=== PATIENT | male | born 1950 | race Caucasian/White ===

== ENCOUNTER → 2020-06-22 16:00 | Outpatient (CLI) | payer MEDICARE, SELFPAY ==
--- NOTE | 2020-06-22 14:30 | CYSPIN_PTH ---
PATIENT: CHAY BRAVO LOC: [facility] U#:[id number] AGE/SX: 75/M ROOM: RE06/22/[address]: Dr. Leonel Reeves MD : [id number] BED: DIS: SPEC #: [id number] RECD: 06/23/20 09:00 STATUS: KAREEM SAMMIE #: [id number] DEANN: 06/22/20 14:[address]: Leonel Reeves DEPT: CYTOLOGY RECD BY: Arsh Valencia ENTERED: 06/23/20 09:00 SP TYPE: CYSPIN FL OTHR DR: No Primary Care Phys Tissues: Urine Procedures: Pap Stain (control) Special Stain Group II Cytospin Fluid HEADER OPERATION: Not noted PRE-OP DIAGNOSIS: Malignant neoplasm of bladder TISSUE SUBMITTED: Urine for cytology DIAGNOSIS CYTOLOGY Urine for cytology (cytospin): Negative for malignant cells. Marked acute inflammation. See comment. VERÓNICA:darren 06/27/20 COMMENT Clinical correlation and appropriate follow up are necessary. CYTOLOGY STUDY Slides are reviewed. CYTOLOGY GROSS Received is 55 ml of cloudy yellow fluid labeled with the patient's name and and designated per the requisition as urine. Submitted for cytology preparation. / darren 06/23/20 TC:2 CPT: 92655
[2020-06-22 16:09] LABS: Cytology, Body Fluid / CSF SEE PATHOLOGY REPORT
== END ==
PROVIDERS: Referring Provider Urology; Visit Provider Urology
DX: Z85.51 Personal history of malignant neoplasm of bladder (principal)
CPT/HCPCS: 88108; 88313

== ENCOUNTER 2021-12-13 18:31 | Emergency (ER) | payer MEDICARE, SELFPAY ==
[2021-12-13 18:32] VITALS: BP 174/94; PULSE 89; RESP 16; TEMP 36.7; O2SAT 97; BMI 35.8
--- NOTE | 2021-12-13 18:38 | ED.RN ---
ENTERS INTO TRIAGE AND PATIENT INFORMS HER HE DOES NOT HAVE A FEVER. 99.4 TA TEMP TAKEN BY DOOR SCREENER AND 98.1 ORAL TAKEN BY RN IN TRIAGE. PT DOESN'T HAVE ANY OTHER COMPLAINTS AND CAME BECAUSE THE THERMOMETER AT HOME SAID IT WAS 101 AND THAT IS WHAT HE WAS INSTRUCTED TO DO BY PCP. PT WANTS TO LEAVE. RN INFORMED PT HE HAS BEEN TRIAGED BUT IS ABLE TO LEAVE IF HE DOESN'T FEEL HE NEEDS TO BE SEEN. PT DOES NOT WANT TO BE SEEN. PT STATES HE WILL GET A NEW THERMOMETER AND RETURN IF REPEAT TEMP OF 101 OR HIGHER.
== END 2021-12-13 18:40 | disposition left against medical advice (07) ==
LOC: ED 18:43
DX: R10.9 Unspecified abdominal pain (principal)

== ENCOUNTER 2021-12-13 20:53 | Inpatient (IN) | payer MEDICARE, SELFPAY ==
[2021-12-13] VITALS (8 sets, daily range): BP systolic 116–158; BP diastolic 74–92; PULSE 93–118; RESP 20–33; TEMP 36.7–38.8; O2SAT 92–99; BMI 37.0; BMI 36.6
--- NOTE | 2021-12-13 20:57 | EKG12_ITS ---
Test Reason : SYNCOPE Blood Pressure : / mmHG Vent. Rate : 118 BPM Atrial Rate : 118 BPM P-R Int : 164 ms QRS Dur : 088 ms QT Int : 312 ms P-R-T Axes : 023 000 017 degrees QTc Int : 437 ms Sinus tachycardia Low voltage QRS (Limb Leads) Confirmed by EFREN CHEN, YSABEL ([id number]), makeup editor BERNABE BAKER ([id number]) on 12/17/2021 11:39:39 AM Referred By: Confirmed By:YSABEL SCHWARTZ MD
--- NOTE | 2021-12-13 20:59 | EX.ED.DYSGE1 ---
HPI History of Present Illness Chief Complaint: Syncope Detail of Chief Complaint: Syncope after painful episode, right kidney region Informant: patient and EMS Onset/Context/Timing Onset: Today Context: Sudden Onset Timing: Intermittent and Lasts Quality: Pain Location: Right kidney area Current Severity: Gone Maximum Severity: Severe Worsened by: History of kidney stones Relieved by: Nothing Associated Symptoms Associated Symptoms: Fever and syncopal episode Narrative Narrative: Patient is an elderly male with history of bladder cancer x2 status post cystectomy and has a ileal conduit who presents because of syncopal episode after severe right sided kidney pain. He did present to the emergency room earlier for fever. He did not have pain at that time. He apparently left prior to being seen. He denies shaking chills. He denies night sweats. He does report diaphoresis. He denies headache. Denies visual, ocular auditory symptoms. He denies rhinorrhea, congestion postnasal drainage and sore throat. He does report nausea without vomiting or diarrhea. He states his urine is slightly more cloudy than normal. He has not noted any blood. He has had no change in color, consistency frequency or caliber of his stool. He denies rash. He presently is pain-free. Prior similar symptoms: Yes (Kidney stone) Recent Illness/Hospitalization: No [facility], [facility] Medical History (Updated 12/13/21 @ 22:[address] Albin Sykes MD) Bladder cancer Kidney stones Home Medications amitriptyline 25 mg PO BID 12/13/21 [History Last Taken Unknown] amlodipine 2.5 mg PO QHS 12/13/21 [History Last Taken Unknown] calcitriol 0.25 mcg PO QMWF 12/13/21 [History Last Taken Unknown] losartan 100 mg PO QHS 12/13/21 [History Last Taken Unknown] rosuvastatin 10 mg PO QHS 12/13/21 [History Last Taken Unknown] Allergy/AdvReac Type Severity Reaction Status Date / Time No Known Allergies Allergy Verified 12/13/21 21:00 Social History (Updated 12/13/21 @ 21:[address] Albin Sykes MD) household members: none Smoking Status: Unknown if ever smoked substance use type: does not use ROS ROS ED Constitutional Constitutional ED: Reports chills, fever(s) and sweats; Denies subjective or weight loss Eyes Eyes: Denies blurry vision, change in vision or diplopia ENT ENT ED: Denies ear pain, rhinorrhea or sore throat Cardiovascular Cardiovascular: Denies chest pain, orthopnea, palpitations, paroxysmal nocturnal dyspnea or racing heartbeat Respiratory/Chest Respiratory/Chest: Reports cough; Denies dyspnea, dyspnea on exertion, orthopnea, paroxysmal nocturnal dyspnea or sputum Gastrointestinal Gastrointestinal: Reports abdominal pain and nausea; Denies constipation, diarrhea, melena or vomiting Genitourinary Genitourinary ED: Reports other Details: Ileal conduit ; Denies dysuria, hematuria or urinary frequency Musculoskeletal Musculoskeletal: Denies arthralgias, back pain, myalgias or neck pain Integumentary Denies rash Neurologic Neurologic: Reports weakness; Denies headache(s) or paresthesias Endocrine Endocrinology: Denies polydipsia, polyphagia or polyuria Hematologic/Lymphatic Hematologic/Lymphatic: Denies anemia, easy bleeding or easy bruising EXAM Physical Exam Const Vital Signs: 12/13/21 20:54 12/13/21 21:25 12/13/21 21:54 Temperature 101.8 F H Temperature Source Oral Pulse Rate 118 H 93 Respiratory Rate 22 H 33 H Respiratory Effort Short of Breath Labored Respiratory Pattern Tachypnea Blood Pressure 158/88 H 141/92 H Blood Pressure Mean 111 108 Pulse Ox 92 99 Oxygen Delivery Method Nasal Cannula Nasal Cannula Nasal Cannula Oxygen Flow Rate (L/min) 5 5 5 Positive well nourished, well developed and obese General Appearance ED: well developed, NAD and other Patient appears ill and is flushed. ; Negative for pallor Nutritional Appearance: obese HEENT Reports TM's clear and dry mucous membranes HEENT Narrative: No dental trauma. No septal deviation hematoma. No clinical signs of basilar skull fracture. No evidence of head trauma. Negative for trauma or tenderness Tympanic Membrane ED: Yes TM's clear Mouth ED: Yes dry mucous membranes Mouth: dry mucous membranes Eyes PERRL and EOMs intact bilaterally Eyes Narrative: No subconjunctival hemorrhage. General Eye ED: Yes scleral icterus; Negative for pale conjunctiva Neck no lymphadenopathy, supple and no JVD Neck Narrative: C-spine cleared per Nexus criteria. General: Negative for tenderness Chest Wall inspection of chest normal and palpation of chest normal Resp normal respiratory effort and No clear to auscultation bilaterally Effort and Inspection: pain with movement Auscultation: rales bilateral mid and lower Cardio regular rhythm, S1 normal heart sound, S2 normal heart sound and no murmurs Rate: tachycardic GI normal to inspection, nondistended, normoactive bowel sounds, non-tender and non-distended GI Narrative: Ileal conduit noted. There is slight rash noted near the adhesive tape. There is no induration, warmth or fluctuance. Palpation: soft Back/Spine no CVA tenderness Cervical Spine: Negative for cervical spine tenderness Thoracic Spine / Upper Back: Negative for thoracic spinal tenderness or paraspinal muscle tenderness Extremity normal to inspection General Extremety ED: Negative for edema or tenderness General Extremity: Negative for edema Neuro oriented x3, CN's II-XII intact bilaterally and no sensory deficits noted Sensorium / Orientation: alert Motor Exam: strength 5/5 throughout Psych mental status grossly normal Skin no rashes or lesions noted and no wounds General Skin Exam: Negative for jaundice or pallor MDM MDM MDM Narrative Medical decision making narrative: With patient having severe pain followed by syncope this would represent a vasovagal episode. Monitor reveals sinus tachycardia. Patient is tachycardic, tachypneic and febrile suspect patient has an infection. With him having rales will take chest x-ray suspect the rales are due to pulmonary interstitial fibrosis. Because of him having acute right kidney pain and prior history of kidney stones will obtain CT to assess for obstruction. Urine was not analyzed since he has an ileal conduit and unable to determine if urine abnormalities due to infection or the fact that he has an ileal conduit. Patient was given Rocephin IV piggyback to cover both respiratory and urologic pathogens. If the source is pneumonia versus urinary tract infection will add azithromycin to the Rocephin. Rapid Covid is negative. CT of the abdomen pelvis reveals a right renal stone. There is evidence of hydroureter uncertain whether there is or is not a stone in the ureter. Patient also has bilateral lower lobe infiltrates, or this may represent interstitial pulmonary fibrosis.. This raises concern for Covid however his rapid Covid is negative. If he is neutropenic this may represent severe sepsis versus viral pneumonia. Will obtain a pro calcitonin to help determine if viral versus bacterial. There appears to be multiple lesions in the liver which raises concern for metastasis since he has had recurrent bladder cancer. There also is soft tissue mass in the right inguinal area which may represent a hernia. Patient does have a hernia on exam. I was able to access patient's [employer] account. The right renal calculus and hydronephrosis and hydroureter were known on CT that was performed December 06, 2021. White count was normal this morning. Platelet count was normal this morning. Patient's creatinine this morning was 2.06. Creatinine on August 28, 2021 was 1.33. Urinalysis is morning revealed blood and leukoesterase with no nitrites. The hospitalist requested a urine culture. One was ordered. Since patient has severe sepsis we will place in PCU stepdown. Lab Data Attestation: I reviewed the patient's lab results. Lab results narrative: Patient has neutropenia. H&H is unremarkable. Platelet count is low. There is a shift with no bandemia. Comprehensive metabolic panel is remarkable for an elevated BUN and creatinine. We will compare to prior. Total bili is slightly elevated 1.5. Alkaline phosphatase is slightly elevated one hundred and thirty-three. Procalcitonin is elevated which would indicate bacterial infection. Labs: Laboratory Results - last 24 hr 12/13/21 12/13/21 12/13/21 21:25 21:25 21:25 WBC 1.6 L RBC 4.21 L Hgb 12.7 L Hct 36.4 L MCV 86.5 MCH 30.2 MCHC 34.9 RDW Std Deviation 47.0 H RDW Coeff of Rosa 14.8 H Plt Count 132 L MPV 9.4 Immature Gran % (Auto) 0.000 Neut % (Auto) 88.9 H Lymph % (Auto) 9.3 L [place] % (Auto) 1.2 Eos % (Auto) 0.0 Baso % (Auto) 0.6 Absolute Neuts (auto) 1.4 L Absolute Lymphs (auto) 0.15 L Nucleated RBC % 0 PT 14.3 INR 1.2 APTT 23.7 L Sodium 136 Potassium 4.1 Chloride 106 Carbon Dioxide 23.0 Anion Gap 7 BUN 33 H Creatinine 2.58 H Estim Creat Clear Calc 25.50 Est GFR (MDRD) Af Amer 32 L Est GFR (MDRD) Non-Af 26 L BUN/Creatinine Ratio 12.8 Glucose 96 Lactic Acid Calcium 8.8 Total Bilirubin 1.50 H AST 15 ALT 18 Alkaline Phosphatase 133 H Total Protein 6.7 Albumin 2.8 L Globulin 3.9 Albumin/Globulin Ratio 0.7 L Procalcitonin 12/13/21 12/13/21 21:25 21:25 WBC RBC Hgb Hct MCV MCH MCHC RDW Std Deviation RDW Coeff of Rosa Plt Count MPV Immature Gran % (Auto) Neut % (Auto) Lymph % (Auto) [place] % (Auto) Eos % (Auto) Baso % (Auto) Absolute Neuts (auto) Absolute Lymphs (auto) Nucleated RBC % PT INR APTT Sodium Potassium Chloride Carbon Dioxide Anion Gap BUN Creatinine Estim Creat Clear Calc Est GFR (MDRD) Af Amer Est GFR (MDRD) Non-Af BUN/Creatinine Ratio Glucose Lactic Acid 1.3 Calcium Total Bilirubin AST ALT Alkaline Phosphatase Total Protein Albumin Globulin Albumin/Globulin Ratio Procalcitonin 1.51 H Radiography Chest X-Ray - ED: 1 View (Single view chest x-ray reveals limited inspiratory volume. There is interstitial changes noted peripheral right and left lower lobe which may represent interstitial pulmonary fibrosis. There is no evidence of pneumoperitoneum. There is significant mount of fecal matter noted on the left side. C) Diagnostic Testing: Clinical Impression(s) from Imaging Studies Abdomen/Pelvis CT 12/13/21 21:00 IMPRESSION: Nonobstructing stones in the right kidney. No stone is identified in the right ureter. There is hydronephrosis in the right kidney. This is likely related to the ileal conduit in the right lower quadrant. Electronically Signed: Hola Caba MD at 22:10 EST , Chest X-Ray 12/13/21 21:35 IMPRESSION: Consolidative infiltrates or atelectasis in the lung bases. Electronically Signed: Hola Caba MD at 22:14 EST , EKG Initial EKG: Attestation: I personally reviewed and interpreted this EKG as follows: Interpretation: Sinus Tachycardia (Ventricular rate is 118. Other than the sinus tach the EKG is normal. DC interval is 164 ms. QRS duration 86 ms. QT duration 312 ms. [place] is normal.) Critical Care Time Critical Care Time: Yes Critical care time (excluding procedures): 30-74 minutes (33 minutes), Including time spent: (History, physical, documentation, review of records from last year and laboratory results from this morning from outside facility. Interpretation lab results and initiation of therapy), Discussing w/Patient &/or Family/Restaurant Cashier, Discussing w/Consultants and Arranging Admission or Transfer Discharge Plan Dx/Rx/DC Orders Clinical Impression: Severe sepsis, Neutropenia due to infection, Thrombocytopenia, Pulmonary fibrosis, MARIA GUADALUPE (acute kidney injury), Right renal stone, Hydronephrosis due to ureteral stricture, Sinus tachycardia, Right inguinal hernia, Interstitial lung disease, Vasovagal syncope Disposition Disposition: Acute Care Hospital [facility]
--- NOTE | 2021-12-13 21:00 | CT_ITS ---
EXAM: CT Abdomen and Pelvis Without Intravenous Contrast CLINICAL INDICATION: 71 years old, Male; Kidney Stone -- Right-sided TECHNIQUE: Helically acquired images were obtained of the abdomen and pelvis without intravenous contrast. This CT exam was performed using one or more of the following dose reduction techniques: automated exposure control, adjustment of the mA and/or kV according to patient size, and/or use of iterative reconstruction technique. This report was created using [employer] report generation technology. COMPARISON: None. FINDINGS: Lower thorax: Unremarkable. Lung bases are clear. No cardiomegaly. No significant pericardial effusion. ABDOMEN: Liver: Low attenuation foci in the liver consistent with hepatic cysts. No follow-up is necessary. Gallbladder and bile ducts: Unremarkable. No calcified gallstones. No gallbladder distention or wall edema. No intra- or extrahepatic biliary ductal dilation. Pancreas: Unremarkable. No focal cystic mass. Spleen: Calcified granulomata in the spleen. Adrenals: Unremarkable. No nodules. Kidneys and ureters: Nonobstructing stones in the right kidney. No stone is identified in the right ureter. There is hydronephrosis in the right kidney. Left nephrectomy. Stomach and bowel: Scattered diverticula in the colon. No diverticulitis. No stomach or bowel distention. PELVIS: Appendix: Normal appendix. Bladder: Cystectomy with ileal conduit to a right lower quadrant ileostomy. Reproductive: Unremarkable as visualized. No mass. ABDOMEN and PELVIS: Intraperitoneal space: Unremarkable. No ascites or other fluid collection. No free air. Bones/joints: Bilateral total hip arthroplasties. Components appear well seated. Grade 1 anterolisthesis of L5 on S1 due to bilateral spondylolistheses. No suspicious lytic or blastic abnormality. Soft tissues: Lipoma in the left chest musculature. Bilateral inguinal hernias containing fat. Vasculature: Unremarkable. Abdominal aorta is non-dilated. Lymph nodes: Unremarkable. No enlarged lymph nodes. CT/Abdomen/Pelvis without Cont IMPRESSION: Nonobstructing stones in the right kidney. No stone is identified in the right ureter. There is hydronephrosis in the right kidney. This is likely related to the ileal conduit in the right lower quadrant. Electronically Signed: Hola Caba MD at 22:10 EST ,
[2021-12-13] MEDS: 0.9% Normal Saline 1,000 ML 999 ML IV (21:29)
[2021-12-13 21:34] LABS: Absolute Lymphocyte Count 0.15 X10^3/uL (0.83-4.51); Absolute Neutrophil Count 1.4 X10^3/uL (2.0-7.7); Basophil# 0.01 X10^3/uL; Basophil% 0.6 % (0-1); Hematocrit 36.4 % (40-54); Hemoglobin 12.7 g/dL (13.0-16.5); Lymphocyte # 0.15 X10^3/ul (0.83-4.51); Lymphocyte % 9.3 % (19-41); Mean Corp Hgb Conc 34.9 g/dL (32-36); Mean Corpuscular Hgb 30.2 pg (27.0-32.0); Mean Corpuscular Volume 86.5 fL (80-94); Mean Platelet Vol. 9.4 fl (6.2-12.0); Monocyte# 0.02 X10^3/uL; Monocyte% 1.2 % (0-10); NRBC Flagged by Analyzer 0 % (0-5); Neutrophil # 1.44 X10^3/uL (2.7-7.7); Neutrophil % 88.9 % (47-70); POSITIVE DIFFERENTIAL YES; POSITIVE MORPHOLOGY YES; Platelet Count 132 K/mm3 (150-450); RBC Distribution Width CV 14.8 % (11.6-14.6); Red Blood Count 4.21 M/mm3 (4.6-6.2); White Blood Count 1.6 K/mm3 (4.4-11.0)
--- NOTE | 2021-12-13 21:35 | RAD_ITS ---
EXAM: XR Chest, 1 View CLINICAL INDICATION: 71 years old, Male; Fever and viral lateral rales history of interstit TECHNIQUE: Frontal view of the chest. This report was created using nGAP report generation technology. COMPARISON: None. FINDINGS: Lungs and pleural spaces: Consolidative infiltrates or atelectasis in the lung bases. Shallow inspiration. No pneumothorax. No effusion. Heart: Unremarkable. Cardiac silhouette not enlarged. Mediastinum: Central airways and mediastinal contour are unremarkable. Bones/joints: Unremarkable. Soft tissues: Unremarkable. RAD/Chest 1 View (Portable) IMPRESSION: Consolidative infiltrates or atelectasis in the lung bases. Electronically Signed: Hola Caba MD at 22:14 EST ,
[2021-12-13 21:50] LABS: Differential Indicated SCAN CRITERIA MET
[2021-12-13 21:51] LABS: ALB/GLOB Ratio 0.7 RATIO (0.9-2.4); AST(SGOT) 15 U/L (15-37); Alanine Aminotransfer ALT/SGPT 18 U/L (16-61); Albumin, Serum 2.8 g/dL (3.2-5.0); Alkaline Phosphatase 133 U/L (45-117); Anion Gap 7 (5-15); BUN 33 mg/dL (7-18); BUN/Creat Ratio 12.8 RATIO (10-20); Calcium,Total 8.8 mg/dL (8.5-10.1); Chloride 106 mmol/L (98-107); Creatinine, Serum 2.58 mg/dL (0.70-1.30); EST Glomerular Filtration Rate 26 mL/min (>60); Est Glom Filt Rate - Afr Amer 32 mL/min (>60); Globulin 3.9 g/dL (2.2-4.2); Glucose 96 mg/dL (74-106); Potassium 4.1 mmol/L (3.5-5.1); Protein, Total 6.7 g/dL (6.4-8.2); Sodium Level 136 mmol/L (136-145)
[2021-12-13 21:57] LABS: Lactic Acid 1.3 mmol/L (0.4-1.9)
[2021-12-13 22:00] LABS: International Normalized Ratio 1.2; Prothrombin Time (Protime)PT. 14.3 SECONDS (11.7-14.9)
[2021-12-13 22:01] LABS: Partial Thromboplast Time 23.7 Seconds (24.1-36.2)
[2021-12-13 22:13] LABS: Procalcitonin 1.51 ng/mL (0.00-0.09)
--- NOTE | 2021-12-13 22:24 | HP.PCM.HOS_ITS ---
HPI - General General Date of Admission: 12/13/21 HPI Narrative CHAY BRAVO, is a 71 M with a significant history of interstitial pulmonary fibrosis; left kidney cancer status post left nephrectomy; prostate and bladder cancer status post cystectomy and ileal conduct urostomy ( done on or 2020); chemotherapy and radiation who presents to the emergency department with persistent shortness of breath requiring him to use his home oxygen. He report that his oxygen saturation was 65%. It is unclear from history whether he was on oxygen at that time or not. However reportedly his oxygen rapidly went into the 90s at home. Associated with his symptoms is right flank pain that he thought it was from a kidney stone. He thinks the kidney stone has now passed. On the similar presentation he saw his PCP (Dr. Ramsey) because of the right flank pain. Reportedly he was told by his PCP that if he has a temperature he should come to the emergency department. At home because he developed a temperature of about a 101F he came to emergency department for the first time. At the emergency department triage he had no fever so he went back home. Also patient had chills and anorexia. He also has constipation. For the past 2 days his bowels has not moved. Of note patient denies syncope. Further, patient'S urology is aware that patient has right hydronephrosis and also told patient that if patient develops a fever he should come to the emergency department. The thought was that the right hydronephrosis was secondary to right kidney and it was anticipated that he will pass the kidney stone. [facility] Medical History Bladder cancer Cancer Chronic pain GERD (gastroesophageal reflux disease) Hypertension Irregular heart beat Kidney stones Non-smoker On home oxygen therapy Home Medications amitriptyline 25 mg PO BID 12/13/21 [History Last Taken Unknown] amlodipine 2.5 mg PO QHS 12/13/21 [History Last Taken Unknown] calcitriol 0.25 mcg PO QMWF 12/13/21 [History Last Taken Unknown] losartan 100 mg PO QHS 12/13/21 [History Last Taken Unknown] rosuvastatin 10 mg PO QHS 12/13/21 [History Last Taken Unknown] Allergy/AdvReac Type Severity Reaction Status Date / Time No Known Allergies Allergy Verified 12/13/21 21:00 Family History (Updated 12/13/21 @ 23:[address] Bethel Gzt MD) Other Cancer Surgical History (Updated 12/13/21 @ 23:[address] Bethel Gtz MD) History of nephrectomy, left S/P ileal conduit Social History (Updated 12/13/21 @ 23:[address] Bethel Gtz MD) household members: none Smoking Status: Never smoker substance use type: does not use ROS ROS Narrative Constitutional: Reports fever chills and anorexia. Denies change in weight Eyes: Denies blurry vision, change in eye color, change in vision, discharge from eye(s), double vision, erythema, eye pain, loss of vision or other HEENT: Denies abnormal hearing, dysphagia, ear pain, epistaxis, headache(s), hearing loss, nasal congestion, nasal discharge, post nasal drip, sinus pressure, sore throat or other Cardiovascular: Denies chest pain or palpitations. Respiratory/Chest: Reports shortness of breath. Denies wheezing Gastrointestinal: Reports nausea and constipation. Denies abdominal pain, coffee ground emesis, diarrhea, dyspepsia, hematemesis, hematochezia, loose stools, melena, vomiting or other Genitourinary: With urostomy. Denies hematuria. Musculoskeletal: Denies arthralgias, joint pain, joint stiffness, joint swelling, myalgias, neck pain or other Neurologic: Reports numbness of bilateral legs that he attributes to chemotherapy. Report tremors. Denies abnormal gait, abnormal speech, confusion, disequilibrium, dizziness, focal weakness, headache(s), paresthesias, seizure-like activity, seizures, syncope, tingling, or other Psychiatric: Denies anxiety, depression, homicidal ideation, suicidal ideation or other Endocrinology: Denies change in body appearance, cold intolerance, excessive sweating, heat intolerance, polydipsia, polyuria or other Hematologic/Lymphatic: Denies anemia, easy bleeding, easy bruising, lymphadeno celia or other Integumentary: Denies rashes Allergic/Immunologic: Denies rhinitis, hives, eczema, asthma or other Constitutional Constitutional: Reports fatigue and weakness; Denies anorexia, change in weight, chills, fever(s), malaise or night sweats Eyes Eyes: Denies blurry vision, change in eye color, change in vision, discharge from eye(s), double vision, erythema, eye pain, loss of vision or other ENT HEENT: Reports nasal discharge, post nasal drip and other; Denies abnormal hearing, dysphagia, ear pain, epistaxis, headache(s), hearing loss, sinus pressure or sore throat Cardiovascular Cardiovascular: Reports dyspnea on exertion; Denies chest pain, claudication, edema, lightheadedness, orthopnea, palpitations, paroxysmal nocturnal dyspnea, rapid heart rate, syncope or other Respiratory/Chest Respiratory/Chest: Reports cough, dyspnea, excessive phlegm production, productive cough, shortness of breath at rest, shortness of breath with exertion and wheezing; Denies hemoptysis Gastrointestinal Gastrointestinal: Denies abdominal pain, coffee ground emesis, constipation, diarrhea, dyspepsia, hematemesis, hematochezia, loose stools, melena, nausea, vomiting or other Genitourinary Genitourinary: Denies burning urination, difficulty urinating, dysuria, hematuria, nocturia, urinary frequency, urinary hesitancy, urinary incontinence, urinary urgency or other Musculoskeletal Musculoskeletal: Denies arthralgias, back pain, joint pain, joint stiffness, joint swelling, myalgias, neck pain or other Neurologic Neurologic: Denies abnormal gait, abnormal speech, confusion, disequilibrium, dizziness, focal weakness, headache(s), numbness, paresthesias, seizure-like activity, seizures, syncope, tingling, tremor(s) or other Psychiatric Psychiatric: Denies anxiety, depression, homicidal ideation, suicidal ideation or other Endocrine Endocrinology: Denies change in body appearance, cold intolerance, excessive sweating, heat intolerance, polydipsia, polyuria or other Hematologic/Lymphatic Hematologic/Lymphatic: Denies anemia, easy bleeding, easy bruising, lymphadenopathy or other Allergic/Immunologic Allergic/Immunologic: Denies rhinitis, hives, eczemia, asthma or other Vital Signs Vital Signs Vital Signs: 12/13/21 20:54 12/13/21 21:25 12/13/21 21:54 Temperature 101.8 F H Temperature Source Oral Pulse Rate 118 H 93 Respiratory Rate 22 H 33 H Respiratory Effort Short of Breath Labored Respiratory Pattern Tachypnea Blood Pressure 158/88 H 141/92 H Blood Pressure Mean 111 108 Pulse Ox 92 99 Oxygen Delivery Method Nasal Cannula Nasal Cannula Nasal Cannula Oxygen Flow Rate (L/min) 5 5 5 Weight Weight: 113.8 kg Body Mass Index (BMI) 37.0 Physical Exam Narrative Physical exam: General: Patient appears uncomfortable in his ED bed. Well-nourished, well- developed. Head: Normocephalic, atraumatic, no tenderness Eyes: PERRLA, EOMI ENT, no trauma, moist mucous membranes, no rhinorrhea Neck: Nontender, full range of motion, no spinal tenderness, deformities, step- off CVS: Tachycardia. S1-S2 present. No murmur, gallop or rub. Respiratory : Tachypnea. Moderate bibasilar Rales. Chest wall nontender, no wheezing Abdomen: With right urostomy with dana-colored urine that has some sediments. Soft, nontender, nondistended, normal bowel sounds, no masses : Deferred Back: Nontender, no CVA tenderness, no midline spinal tenderness, deformities, step-offs Extremities: Nontender full range of motion, no trauma Skin: Normal color, no trauma, abrasions Neuro: Alert, oriented, cranial nerves II through XII grossly intact. Psychiatry: Normal mood. Normal affect. Not depressed. Not anxious. Const alert, oriented x3, no apparent distress, average body habitus, healthy appearing and well nourished General Appearance: cooperative and uncooperative Orientation / Consciousness: confused, disoriented and lethargic HEENT normocephalic, head/scalp atraumatic, hearing grossly normal bilaterally, moist oral mucous membranes, oropharynx normal and dentition normal Mouth: oral and palatal mucosa normal and moist mucous membranes abnormal Eyes PERRL, EOMs intact bilaterally and conjunctivae normal Neck no lymphadenopathy, supple, no JVD and no carotid bruits Resp Effort and Inspection: respiratory distress, labored and uses accessory muscles; Negative for able to speak in complete sentences or actively coughing Auscultation: rhonchi, wheezes and breath sounds absent; Negative for crackles Cardio regular rate, regular rhythm, S1 normal heart sound, S2 normal heart sound, no murmurs, no rub, no gallops, no clicks and no JVD GI normal to inspection, nondistended, normoactive bowel sounds, soft to palpation, non-tender, non-distended and hepatosplenomegaly Auscultation: hyperactive bowel sounds and hypoactive bowel sounds Palpation: tender, guarding and hernia Extremity normal to inspection, full ROM and no clubbing, cyanosis or edema Peripheral Pulses: Yes pulses 2+ throughout Skin no rashes or lesions noted, no wounds and skin turgor normal Neuro oriented x3 and moves all extremities Sensorium / Orientation: awake, alert, oriented to person, oriented to place and oriented to time Motor Exam: strength 5/5 throughout Psych affect normal Mood & Affect: Negative for depressed or anxious Results Lab / Micro Data Result Diagrams: 12/13/21 21:25 12/13/21 21:25 Labs: Laboratory Results - last 24 hr 12/13/21 21:25: WBC 1.6 L, RBC 4.21 L, Hgb 12.7 L, Hct 36.4 L, MCV 86.5, MCH 30.2, MCHC 34.9, RDW Std Deviation 47.0 H, RDW Coeff of Rosa 14.8 H, Plt Count 132 L, MPV 9.4, Immature Gran % (Auto) 0.000, Neut % (Auto) 88.9 H, Lymph % (Auto) 9.3 L, Schleicher % (Auto) 1.2, Eos % (Auto) 0.0, Baso % (Auto) 0.6, Absolute Neuts (auto) 1.4 L, Absolute Lymphs (auto) 0.15 L, Nucleated RBC % 0 12/13/21 21:25: PT 14.3, INR 1.2, APTT 23.7 L 12/13/21 21:25: Sodium 136, Potassium 4.1, Chloride 106, Carbon Dioxide 23.0, Anion Gap 7, BUN 33 H, Creatinine 2.58 H, Estim Creat Clear Calc 25.50, Est GFR (MDRD) Af Amer 32 L, Est GFR (MDRD) Non-Af 26 L, BUN/Creatinine Ratio 12.8, Glucose 96, Calcium 8.8, Total Bilirubin 1.50 H, AST 15, ALT 18, Alkaline Phosphatase 133 H, Total Protein 6.7, Albumin 2.8 L, Globulin 3.9, Albumin/Globulin Ratio 0.7 L 12/13/21 21:25: Lactic Acid 1.3 12/13/21 21:25: Procalcitonin 1.51 H Micro: Microbiology 12/13/21 21:17 Nasal Secretion SARS-CoV-2 Antigen (Rapid) - Final Radiology Impression Abdomen/Pelvis CT 12/13/21 21:00 IMPRESSION: Nonobstructing stones in the right kidney. No stone is identified in the right ureter. There is hydronephrosis in the right kidney. This is likely related to the ileal conduit in the right lower quadrant. Electronically Signed: Hola Caba MD at 22:10 EST , Chest X-Ray 12/13/21 21:35 IMPRESSION: Consolidative infiltrates or atelectasis in the lung bases. Electronically Signed: Hola Caba MD at 22:14 EST , Assessment & Plan (1) Sepsis: QUALIFIERS: Acute renal failure type: unspecified Sepsis acute organ dysfunction status: with acute organ dysfunction Sepsis type: sepsis due to unspecified organism Severe sepsis acute organ dysfunction type: acute renal failure Severe sepsis shock status: without septic shock Qualified Code(s): A41.9 - Sepsis, unspecified organism; R65.20 - Severe sepsis without septic shock; N17.9 - Acute kidney failure, unspecified (2) Neutropenia due to infection: (3) MARIA GUADALUPE (acute kidney injury): (4) S/P ileal conduit: PLAN: Sepsis Presentation -Chest x-ray was visualized and independently interpreted and I agree with radiologist impression above. Presentation - CT abdomen and pelvis with right kidney stone and right hydronephrosis. Patient follows up with the urologist as Drew Singh and who ordered CT flank with IV contrast on 12/06/2021. Review of community records: Impression of CT flank with IV contrast on 12/06/2021 1. Right renal calculi. There is a 4 mm calculus in the mid to distal right ureter. There is mild right-sided hydronephrosis and hydroureter. 2. Soft tissue density material adjacent to the left external iliac vessels which may be related to recent inguinal hernia repair presentation - Review of labs showed white count of 1.6; hemoglobin of 12.7; platelet count of 132. Patient with neutrophilia and lymphopenia. qSOFA score of at least 4 (creatinine of 2.58; total bilirubin of 1.50; platelets of 132). This is excluding hypoxia. Patient reports that at home with activity he typically uses 5L of oxygen. Concerned that with activity he just has to jump to 5L; and at rest he uses no oxygen . And on the day of presentation he required 5 L. Likely secondary to infected kidney stone. Started on ceftriaxone the emergency department. We will broaden antibiotics to Zosyn. Discussed emergent department doctor who ordered urine culture. Follow urine culture. Blood cultures obtained emergency department; follow. Rapid Covid screen at emergency department was negative. Covid PCR ordered. Right kidney stone with hydronephrosis As needed oxycodone,. Morphine ordered. IV hydration. Per patient his urologist is aware. Consider further discussion urology. MARIA GUADALUPE Creatinine presentation was 2.58. Received normal saline bolus at emergency department. Gentle IV hydration ordered. Trend BMP. Avoid nephrotoxins. Hold home losartan. Blood pressure is stable. Amlodipine continued. DVT prophylaxis: Subcutaneous Lovenox ordered.
[2021-12-13 22:27] LABS: Differential Comment SCANNED
[2021-12-13] MEDS: 0.9% Normal Saline 1,000 ML 75 ML IV (23:47)
[2021-12-13] MEDS: Ondansetron 4 MG/2 ML Vial IV (23:50)
[2021-12-14] VITALS (10 sets, daily range): BP systolic 97–106; BP diastolic 61–71; PULSE 70–94; RESP 12–20; TEMP 36.6–37.1; O2SAT 94–100
--- NOTE | 2021-12-14 00:04 | HP.PCM.HOS_ITS ---
[facility] - General General Date of Admission: 12/13/21 Date of Service: 12/13/21 Chief Complaint: sob [facility] Narrative CHAY BRAVO, is a 71 M with a significant history of interstitial pulmonary fibrosis; left kidney cancer status post left nephrectomy; prostate and bladder cancer status post cystectomy and ileal conduct urostomy ( done on or 2020); chemotherapy and radiation who presents to the emergency department with persistent shortness of breath requiring him to use his home oxygen. He report that his oxygen saturation was 65%. It is unclear from history whether he was on oxygen at that time or not. However reportedly his oxygen rapidly went into the 90s at home. Associated with his symptoms is right flank pain that he thought it was from a kidney stone. He thinks the kidney stone has now passed. On the similar presentation he saw his PCP (Dr. Ramsey) because of the right flank pain. Reportedly he was told by his PCP that if he has a temperature he should come to the emergency department. At home because he de veloped a temperature of about a 101F he came to emergency department for the first time. At the emergency department triage he had no fever so he went back home. Also patient had chills and anorexia. He also has constipation. For the past 2 days his bowels has not moved. Of note patient denies syncope. Further, patient'S urology is aware that patient has right hydronephrosis and also told patient that if patient develops a fever he should come to the emergency department. The thought was that the right hydronephrosis was secondary to right kidney and it was anticipated that he will pass the kidney stone. [facility] Medical History Bladder cancer Cancer Chronic pain GERD (gastroesophageal reflux disease) Hypertension Irregular heart beat Kidney stones Non-smoker On home oxygen therapy Home Medications amitriptyline 25 mg PO BID 12/13/21 [History Last Taken Unknown] amlodipine 2.5 mg PO QHS 12/13/21 [History Last Taken Unknown] calcitriol 0.25 mcg PO QMWF 12/13/21 [History Last Taken Unknown] losartan 100 mg PO QHS 12/13/21 [History Last Taken Unknown] rosuvastatin 10 mg PO QHS 12/13/21 [History Last Taken Unknown] Allergy/AdvReac Type Severity Reaction Status Date / Time No Known Allergies Allergy Verified 12/13/21 21:00 Family History (Updated 12/13/21 @ 23:[address] Bethel Gtz MD) Other Cancer Surgical History (Updated 12/13/21 @ 23:[address] Bethel Gtz MD) History of nephrectomy, left S/P ileal conduit Social History (Updated 12/13/21 @ 23:[address] Bethel Gtz MD) household members: none Smoking Status: Never smoker substance use type: does not use ROS ROS Narrative Constitutional: Reports fever chills and anorexia. Denies change in weight Eyes: Denies blurry vision, change in eye color, change in vision, discharge from eye(s), double vision, erythema, eye pain, loss of vision or other HEENT: Denies abnormal hearing, dysphagia, ear pain, epistaxis, headache(s), hearing loss, nasal congestion, nasal discharge, post nasal drip, sinus pressure, sore throat or other Cardiovascular: Denies chest pain or palpitations. Respiratory/Chest: Reports shortness of breath. Denies wheezing Gastrointestinal: Reports nausea and constipation. Denies abdominal pain, coffee ground emesis, diarrhea, dyspepsia, hematemesis, hematochezia, loose stools, melena, vomiting or other Genitourinary: With urostomy. Denies hematuria. Musculoskeletal: Denies arthralgias, joint pain, joint stiffness, joint swelling, myalgias, neck pain or other Neurologic: Reports numbness of bilateral legs that he attributes to chemotherapy. Report tremors. Denies abnormal gait, abnormal speech, confusion, disequilibrium, dizziness, focal weakness, headache(s), paresthesias, seizure-like activity, seizures, syncope, tingling, or other Psychiatric: Denies anxiety, depression, homicidal ideation, suicidal ideation or other Endocrinology: Denies change in body appearance, cold intolerance, excessive sweating, heat intolerance, polydipsia, polyuria or other Hematologic/Lymphatic: Denies anemia, easy bleeding, easy bruising, lymphadenopa thy or other Integumentary: Denies rashes Allergic/Immunologic: Denies rhinitis, hives, eczema, asthma or other Vital Signs Vital Signs Vital Signs: 12/13/21 20:54 12/13/21 21:25 12/13/21 21:54 Temperature 101.8 F H Temperature Source Oral Pulse Rate 118 H 93 Respiratory Rate 22 H 33 H Respiratory Effort Short of Breath Labored Respiratory Pattern Tachypnea Blood Pressure 158/88 H 141/92 H Blood Pressure [BP] Blood Pressure Mean 111 108 Blood Pressure Mean [BP] Blood Pressure Source [BP] Blood Pressure Position [BP] Blood Pressure Location [BP] Pulse Ox 92 99 Oxygen Delivery Method Nasal Cannula Nasal Cannula Nasal Cannula Oxygen Flow Rate (L/min) 5 5 5 12/13/21 22:25 12/13/21 22:46 12/13/21 23:23 Temperature 99.9 F H 99.9 F H 98.1 F Temperature Source Oral Oral Oral Pulse Rate 102 H 109 H 113 H Respiratory Rate 33 H 32 H 20 H Respiratory Effort Respiratory Pattern Blood Pressure 142/82 H 127/74 H Blood Pressure [BP] 116/78 Blood Pressure Mean 102 91 Blood Pressure Mean [BP] 90 Blood Pressure Source [BP] Monitor Blood Pressure Position [BP] Semi-Fowlers Blood Pressure Location [BP] Right Arm Pulse Ox 98 95 96 Oxygen Delivery Method Nasal Cannula Nasal Cannula Nasal Cannula Oxygen Flow Rate (L/min) 5 5 4 12/13/21 23:46 Temperature 98.1 F Temperature Source Oral Pulse Rate 110 H Respiratory Rate 20 H Respiratory Effort Respiratory Pattern Blood Pressure 116/78 Blood Pressure [BP] Blood Pressure Mean 90 Blood Pressure Mean [BP] Blood Pressure Source [BP] Blood Pressure Position [BP] Blood Pressure Location [BP] Pulse Ox 96 Oxygen Delivery Method Nasal Cannula Oxygen Flow Rate (L/min) 4 Weight Weight: 112.3 kg Body Mass Index (BMI) 36.6 Physical Exam Narrative Physical exam: General: Patient appears uncomfortable in his ED bed. Well-nourished, well- developed. Head: Normocephalic, atraumatic, no tenderness Eyes: PERRLA, EOMI ENT, no trauma, moist mucous membranes, no rhinorrhea Neck: Nontender, full range of motion, no spinal tenderness, deformities, step- off CVS: Tachycardia. S1-S2 present. No murmur, gallop or rub. Respiratory : Tachypnea. Moderate bibasilar Rales. Chest wall nontender, no w heezing Abdomen: With right urostomy with dana-colored urine that has some sediments. Soft, nontender, nondistended, normal bowel sounds, no masses : Deferred Back: Nontender, no CVA tenderness, no midline spinal tenderness, deformities, step-offs Extremities: Nontender full range of motion, no trauma Skin: Normal color, no trauma, abrasions Neuro: Alert, oriented, cranial nerves II through XII grossly intact. Psychiatry: Normal mood. Normal affect. Not depressed. Not anxious. Results Lab / Micro Data Result Diagrams: 12/13/21 21:25 12/13/21 21:25 Labs: Laboratory Results - last 24 hr 12/13/21 21:25: WBC 1.6 L, RBC 4.21 L, Hgb 12.7 L, Hct 36.4 L, MCV 86.5, MCH 30.2, MCHC 34.9, RDW Std Deviation 47.0 H, RDW Coeff of Rosa 14.8 H, Plt Count 132 L, MPV 9.4, Immature Gran % (Auto) 0.000, Neut % (Auto) 88.9 H, Lymph % (Auto) 9.3 L, [place] % (Auto) 1.2, Eos % (Auto) 0.0, Baso % (Auto) 0.6, Absolute Neuts (auto) 1.4 L, Absolute Lymphs (auto) 0.15 L, Nucleated RBC % 0, Differential Comment SCANNED, Diff Path Review February12/13/21 21:25: PT 14.3, INR 1.2, APTT 23.7 L 12/13/21 21:25: Sodium 136, Potassium 4.1, Chloride 106, Carbon Dioxide 23.0, Anion Gap 7, BUN 33 H, Creatinine 2.58 H, Estim Creat Clear Calc 25.50, Est GFR (MDRD) Af Amer 32 L, Est GFR (MDRD) Non-Af 26 L, BUN/Creatinine Ratio 12.8, Glucose 96, Calcium 8.8, Total Bilirubin 1.50 H, AST 15, ALT 18, Alkaline Phosphatase 133 H, Total Protein 6.7, Albumin 2.8 L, Globulin 3.9, Albumin/Globulin Ratio 0.7 L 12/13/21 21:25: Lactic Acid 1.3 12/13/21 21:25: Procalcitonin 1.51 H Micro: Microbiology 12/13/21 22:40 Urine, Clean Catch Legionella Antigen - Final 12/13/21 22:40 Urine, Clean Catch Streptococcus pneumoniae Antigen (M - Final Streptococcus pneumonia Ag 12/13/21 21:17 Nasal Secretion SARS-CoV-2 Antigen (Rapid) - Final Radiology Impression Abdomen/Pelvis CT 12/13/21 21:00 IMPRESSION: Nonobstructing stones in the right kidney. No stone is identified in the right ureter. There is hydronephrosis in the right kidney. This is likely related to the ileal conduit in the right lower quadrant. Electronically Signed: Hola Caba MD at 22:10 EST , Chest X-Ray 12/13/21 21:35 IMPRESSION: Consolidative infiltrates or atelectasis in the lung bases. Electronically Signed: Hola Caba MD at 22:14 EST , Assessment & Plan Assessment/Plan (1) Severe sepsis: (2) Neutropenia due to infection: (3) MARIA GUADALUPE (acute kidney injury): PLAN: Sepsis secondary to Streptococcus pneumoniae Can not rule out concomitant infected kidney stone infection. Source unclear. Presentation -Chest x-ray was visualized and independently interpreted and I agree with radiologist impression above. Presentation - CT abdomen and pelvis with right kidney stone and right hydronephrosis. Patient follows up with the urologist as Drew Singh and who ordered CT flank with IV contrast on 12/06/2021. Review of community records: Impression of CT flank with IV contrast on 12/06/2021 1. Right renal calculi. There is a 4 mm calculus in the mid to distal right ureter. There is mild right-sided hydronephrosis and hydroureter. 2. Soft tissue density material adjacent to the left external iliac vessels which may be related to recent inguinal hernia repair presentation - Review of labs showed white count of 1.6; hemoglobin of 12.7; platelet count of 132. Patient with neutrophilia and lymphopenia. qSOFA score of at least 4 (creatinine of 2.58; total bilirubin of 1.50; platelets of 132). This is excluding hypoxia. Patient reports that at home with activity he typically uses 5L of oxygen. Concerned that with activity he just has to jump to 5L; and at rest he uses no oxygen . And on the day of presentation he required 5 L. Procalcitonin 1.51. Lactic acid is normal. Earlier on the same day of presentation outpatient labs showed white count of 8.53; platelet of 238; hemoglobin of 13.3. Started on ceftriaxone the emergency department. Antibiotics to Zosyn. Discussed emergent department doctor who ordered urine culture. Follow urine culture. Blood cultures obtained emergency department; follow. Rapid Covid screen at emergency department was negative. Covid PCR ordered. Legionella urine antigen and Streptococcus pneumoniae antigen ordered. Trend CBC and BMP. Right kidney stone with hydronephrosis As needed oxycodone,. Morphine ordered. IV hydration. Per patient his urologist is aware. Consider further discussion urology. MARIA GUADALUPE Creatinine presentation was 2.58; BUN of 33. BUN over creatinine ratio of 12.8. Intrinsic renal versus post renal etiology. Earlier on on the same day of presentation his creatinine was 2.06. BUN was 26. On 08/28/2021 his creatinine was 1.33. Received normal saline bolus at emergency department. Gentle IV hydration ordered. Trend BMP. Avoid nephrotoxins. Hold home losartan. HTN: Blood pressure is stable. Amlodipine continued. Losartan held secondary MARIA GUADALUPE DVT prophylaxis: Subcutaneous Lovenox ordered. Charges/Coding Visit Charges [facility]
[2021-12-14 05:38] LABS: Absolute Lymphocyte Count 0.32 X10^3/uL (0.83-4.51); Absolute Neutrophil Count 12.1 X10^3/uL (2.0-7.7); Basophil# 0.04 X10^3/uL; Basophil% 0.3 % (0-1); Hematocrit 33.3 % (40-54); Hemoglobin 11.5 g/dL (13.0-16.5); Lymphocyte # 0.32 X10^3/ul (0.83-4.51); Lymphocyte % 2.3 % (19-41); Mean Corp Hgb Conc 34.5 g/dL (32-36); Mean Corpuscular Hgb 30.3 pg (27.0-32.0); Mean Corpuscular Volume 87.9 fL (80-94); Mean Platelet Vol. 9.1 fl (6.2-12.0); Monocyte# 1.03 X10^3/uL; Monocyte% 7.5 % (0-10); NRBC Flagged by Analyzer 0 % (0-5); Neutrophil # 12.09 X10^3/uL (2.7-7.7); Neutrophil % 87.9 % (47-70); POSITIVE DIFFERENTIAL YES; POSITIVE MORPHOLOGY YES; Platelet Count 167 K/mm3 (150-450); RBC Distribution Width CV 15.1 % (11.6-14.6); RBC Distribution Width SD 48.5 fl (35.1-43.9); Red Blood Count 3.79 M/mm3 (4.6-6.2); White Blood Count 13.8 K/mm3 (4.4-11.0)
[2021-12-14 05:39] LABS: Differential Indicated SCAN CRITERIA MET
[2021-12-14 05:56] LABS: ALB/GLOB Ratio 0.7 RATIO (0.9-2.4); AST(SGOT) 15 U/L (15-37); Alanine Aminotransfer ALT/SGPT 15 U/L (16-61); Albumin, Serum 2.3 g/dL (3.2-5.0); Alkaline Phosphatase 99 U/L (45-117); Anion Gap 9 (5-15); BUN 34 mg/dL (7-18); BUN/Creat Ratio 13.8 RATIO (10-20); Calcium,Total 7.9 mg/dL (8.5-10.1); Chloride 105 mmol/L (98-107); Creatinine, Serum 2.46 mg/dL (0.70-1.30); EST Glomerular Filtration Rate 28 mL/min (>60); Est Glom Filt Rate - Afr Amer 33 mL/min (>60); Estimated Creatinine Clearance 26.74 ml/min; Globulin 3.5 g/dL (2.2-4.2); Glucose 93 mg/dL (74-106); Protein, Total 5.8 g/dL (6.4-8.2); Sodium Level 135 mmol/L (136-145)
--- NOTE | 2021-12-14 07:38 | PCM.HOSP.N ---
Hospitalist Note Seen and examined. Last fever 100.1 Fahrenheit about 9 PM yesterday. The patient admitted with concern of complicated UTI and bilateral lower lobes Streptococcus pneumoniae pneumonia. Patient has infiltrates in the right lung base and left lung base dissociative atelectasis Urinary antigen positive for strep pneumococcus. SARS-CoV-2 rapid antigen negative. Lactic acid normal. Patient did not had drop in blood pressure, altered mental status but tachypnea, qSOFA score 1. Respiratory rate was 33/min. Patient had leukocytosis with neutropenia and absolute lymphopenia. BUN/creatinine, chronically elevated due to single kidney. Procalcitonin 1.51. Blood cultures x2+ of gram-negative rods. Urine culture gram-negative castro [id number] colonies. COVID-19 PCR negative Gram-negative castro bacteremia secondary to partially treated complicated gram-negative castro UTI and bilateral lower lobes Streptococcus pneumoniae pneumonia. Sepsis ruled out as patient does not meet criteria for sepsis, qSOFA score 2 or more and other features of organ dysfunction like lactic acidosis, acute respiratory failure, thrombocytopenia, coagulopathy or hyperbilirubinemia/liver dysfunction. Patient has chronically elevated creatinine and follows in [facility]. Will obtain records from [facility] CKD stage IV, elevated creatinine due to single kidney with history of chronic nephrolithiasis with acute right renal calculi with hydronephrosis reviewed ileal conduit in the right lower quadrant.. CT abdomen shows 4 mm nonobstructing stone right kidney with hydronephrosis. Hydronephrosis may related to ileal conduit in the right lower quadrant. No stone identified in the right ureter.Soft tissue density material adjacent to the left external iliac vessels which may be related to recent inguinal hernia repair HTN: Blood pressure is stable. Amlodipine continued. Losartan held secondary MARIA GUADALUPE DVT prophylaxis: Subcutaneous Lovenox ordered. General: Alert, Oriented x3, Cooperative HEENT: Atraumatic, PERRLA, EOMI, Normocephalic Oral: No Gingival or Mucosal Lesions/ Ulcerations Neck: Supple, No JVD, Negative Carotid Bruits Lungs: Air entry diminished in bilateral lung bases. No crepitation/rhonchi Cardiovascular: Sinus rhythm, Normal S1, Normal S2, No murmurs Abdomen: Bowel Sounds Present, Soft, Non Tender, Non-Distended : Right urostomy bag. Clear urine. Status post left nephrectomy, ureterectomy cholecystectomy and prostatectomy. No renal angle tenderness. No suprapubic tenderness. Extremities: No edema, Capillary Refill Less than 3 Seconds Skin: No rashes, No breakdown Musculoskeletal: No Tenderness to Palpation of Joints or Extremities Neurological: Cranial nerves II-XII grossly intact, DTR 2+/4 and Symmetrical, Neuro grossly intact Psych/Mental Status: Normal Affect, Appropriate. Clinical Impression(s) from Imaging Studies Abdomen/Pelvis CT 12/13/21 21:00 IMPRESSION: Nonobstructing stones in the right kidney. No stone is identified in the right ureter. There is hydronephrosis in the right kidney. This is likely related to the ileal conduit in the right lower quadrant. Chest X-Ray 12/13/21 21:35 IMPRESSION: Consolidative infiltrates or atelectasis in the lung bases. Total time of the visit including total time spent in counseling or coordination of care, (more than 50% of the total time, spent in obtaining medical information from nurses and other ancillary care providers,explaining to the patient about labs, imaging, diagnosis and management), discussion with patient , review of labs and imaging is 40 minutes.
[2021-12-14] MEDS: Calcitriol 0.25 MCG Capsule PO (08:29)
[2021-12-14] MEDS: Amitriptyline 25 MG Tablet PO ×2 (08:29→21:25)
[2021-12-14] MEDS: Ondansetron 4 MG/2 ML Vial IV ×2 (08:29→16:41)
[2021-12-14] MEDS: Senna/Docusate Sodium 1 Tablet 2 TABLET PO (08:30)
[2021-12-14] MEDS: Heparin Injection (Vial) 5,000 UNIT/ML VIAL 5000 UNIT SC ×2 (08:30→21:24)
--- NOTE | 2021-12-14 10:48 | PCM.DC ---
Discharge Instructions Diet Discharge Diet: Low fat / Low cholesterol and 2000 mg Sodium Diet Activity Discharge Activity: Return to Normal Activity, May Not Drive and May Shower Weight Bearing Status: Weight bearing as tolerated Dressing / Incision Call your doctor if you observe: Fever of 101 or Higher, Coldness, Increased Pain, Numbness or Tingling, Change in Color, Inability to urinate, Inability to have a bowel movement, Shortness of breath, Dizziness, Fainting spells, Swelling in the ankles, Chest pain, Prolonged hiccupping, Increased palpitations (irregular heartbeat), Calf discomfort and Uncontrolled pain Follow Up Care Test Results: Test results from this visit will be discussed in further detail at your follow-up appointment, if applicable. Discharge Plan Admission Admit Date/Time: 12/13/21 22:33 Primary Reason for Your Visit: Streptococcal pneumoniae pneumonia Attending Provider: Sukhwinder Matthews Primary Care Provider: Sonido Ramsey Instructions Additional Instructions / Restrictions: Follow-up BMP in 3 days with PCP. Patient requesting discharge. Patient follows outside urologist Dr. Du Singh Patient also follows [employer] for interstitial pneumonitis/interstitial lung disease. Advised BMP in 2 to 3 days and follow-up with PCP. Discharge Orders/Prescriptions Prescriptions: New sennosides-docusate sodium [Stool Softener-Stimulant Laxat] 8.6-50 mg Tablet 2 tab PO DAILY Qty: 0 RF: 0 levofloxacin 500 mg tablet 500 mg PO Q48H Qty: 4 RF: 0 Continued amlodipine 2.5 mg tablet 2.5 mg PO QHS RF: 0 amitriptyline 50 mg tablet 25 mg PO BID RF: 0 calcitriol 0.25 mcg capsule 0.25 mcg PO QMWF RF: 0 rosuvastatin 10 mg tablet 10 mg PO QHS RF: 0 Held losartan 100 mg tablet 100 mg PO QHS RF: 0 Hold Instructions: Hold for 2 days and then resume losartan 50 mg daily for 2 days then increase 100 mg daily. Referrals / Follow Up: Sonido Ramsey MD [Primary Care Provider] - In 1 Week Disposition Disposition (needs filled in before D/C Order can be placed): Home, Self Care
--- NOTE | 2021-12-14 10:49 | DS.PCM_ITS ---
Providers Date of Admission: 12/13/21 Primary Care Physician: Dr. Sonido Ramsey MD Reason For Visit: SEPSIS Diagnosis Discharge Diagnosis (1) Severe sepsis: Status: Acute Code(s): A41.9 - Sepsis, unspecified organism; R65.20 - Severe sepsis without septic shock (2) Neutropenia due to infection: Status: Acute Code(s): D70.3 - Neutropenia due to infection (3) MARIA GUADALUPE (acute kidney injury): Status: Acute Code(s): N17.9 - Acute kidney failure, unspecified Medications at Discharge Home Medications amitriptyline 25 mg PO BID 12/13/21 amlodipine 2.5 mg PO QHS 12/13/21 calcitriol 0.25 mcg PO QMWF 12/13/21 losartan 100 mg PO QHS 12/13/21 rosuvastatin 10 mg PO QHS 12/13/21 Weight / BMI Weight Weight: 247 lb 9.266 oz Body Mass Index (BMI) 36.6 ABG / Lab / Microbiology Data Result Diagrams: 12/14/21 05:20 12/14/21 05:20 Laboratory: Laboratory Results - last 24 hr 12/13/21 21:25: WBC 1.6 L, RBC 4.21 L, Hgb 12.7 L, Hct 36.4 L, MCV 86.5, MCH 30.2, MCHC 34.9, RDW Std Deviation 47.0 H, RDW Coeff of Rosa 14.8 H, Plt Count 132 L, MPV 9.4, Immature Gran % (Auto) 0.000, Neut % (Auto) 88.9 H, Lymph % (Auto) 9.3 L, [place] % (Auto) 1.2, Eos % (Auto) 0.0, Baso % (Auto) 0.6, Absolute Neuts (auto) 1.4 L, Absolute Lymphs (auto) 0.15 L, Nucleated RBC % 0, Differential Comment SCANNED, Diff Path Review February12/13/21 21:25: PT 14.3, INR 1.2, APTT 23.7 L 12/13/21 21:25: Sodium 136, Potassium 4.1, Chloride 106, Carbon Dioxide 23.0, Anion Gap 7, BUN 33 H, Creatinine 2.58 H, Estim Creat Clear Calc 25.50, Est GFR (MDRD) Af Amer 32 L, Est GFR (MDRD) Non-Af 26 L, BUN/Creatinine Ratio 12.8, Glucose 96, Calcium 8.8, Total Bilirubin 1.50 H, AST 15, ALT 18, Alkaline Phosphatase 133 H, Total Protein 6.7, Albumin 2.8 L, Globulin 3.9, Albumin/Globulin Ratio 0.7 L 12/13/21 21:25: Lactic Acid 1.3 12/13/21 21:25: Procalcitonin 1.51 H 12/14/21 02:15: COVID-19 (YADIRA) Not Detected 12/14/21 05:20: WBC 13.8 H, RBC 3.79 L, Hgb 11.5 L, Hct 33.3 L, MCV 87.9, MCH 30.3, MCHC 34.5, RDW Std Deviation 48.5 H, RDW Coeff of Rosa 15.1 H, Plt Count 167, MPV 9.1, Immature Gran % (Auto) 2.000 H, Neut % (Auto) 87.9 H, Lymph % (Auto) 2.3 L, [place] % (Auto) 7.5, Eos % (Auto) 0.0, Baso % (Auto) 0.3, Absolute Neuts (auto) 12.1 H, Absolute Lymphs (auto) 0.32 L, Nucleated RBC % 0 12/14/21 05:20: Sodium 135 L, Potassium 4.0, Chloride 105, Carbon Dioxide 21.0, Anion Gap 9, BUN 34 H, Creatinine 2.46 H, Estim Creat Clear Calc 26.74, Est GFR (MDRD) Af Amer 33 L, Est GFR (MDRD) Non-Af 28 L, BUN/Creatinine Ratio 13.8, Glucose 93, Calcium 7.9 L, Total Bilirubin 0.80, AST 15, ALT 15 L, Alkaline Phosphatase 99, Total Protein 5.8 L, Albumin 2.3 L, Globulin 3.5, Albumin/Globulin Ratio 0.7 L Microbiology: Microbiology 12/13/21 22:40 Urine, Clean Catch Legionella Antigen - Final 12/13/21 22:40 Urine, Clean Catch Streptococcus pneumoniae Antigen (M - Final Streptococcus pneumonia Ag 12/13/21 21:17 Nasal Secretion SARS-CoV-2 Antigen (Rapid) - Final Radiography Diagnostic Testing: Radiology Impression Abdomen/Pelvis CT 12/13/21 21:00 IMPRESSION: Nonobstructing stones in the right kidney. No stone is identified in the right ureter. There is hydronephrosis in the right kidney. This is likely related to the ileal conduit in the right lower quadrant. Electronically Signed: Hola Caba MD at 22:10 EST , Chest X-Ray 12/13/21 21:35 IMPRESSION: Consolidative infiltrates or atelectasis in the lung bases. Electronically Signed: Hola Caba MD at 22:14 EST , Discharge Plan Admission Admit Date/Time: 12/13/21 22:33 Attending Provider: Sukhwinder Matthews Primary Care Provider: Sonido Ramsey Discharge Orders/Prescriptions Prescriptions: No Action amlodipine 2.5 mg tablet 2.5 mg PO QHS RF: 0 amitriptyline 50 mg tablet 25 mg PO BID RF: 0 losartan 100 mg tablet 100 mg PO QHS RF: 0 calcitriol 0.25 mcg capsule 0.25 mcg PO QMWF RF: 0 rosuvastatin 10 mg tablet 10 mg PO QHS RF: 0 Referrals / Follow Up: Sonido Ramsey MD [Primary Care Provider] -
--- NOTE | 2021-12-14 11:20 | CASEMGMT ---
URMILA GUPTA assessment: Face to Face with patient for initial transition planning/care coordination assessment. URMILA GUPTA introduced self and role at [facility], pt voices understanding and consents to assessment. Pt is sitting up in chair in no distress on room air. Pt is A/Ox4 and answers all questions appropriately. Care providers, pharmacy, and demographics verified. Presentation: Pt w/ near syncopal episode after passing kidney stone at home-also w/ fever Admitting dx: Sepsis PCP: Braulio Specialists: enrique Rodriguez at [facility]; Briana onc; odilia Orr at [facility] Preferred Pharmacy: [facility] Insurance: AeR Prescription Benefit: AeR Living Will/HPOA: Pt has LW/HPOA and is aware that they are not on file at [facility]. pt states his , Lauryn Chi, is HPOA. LNOK: Lauryn Chi, /HPOA Living Arrangements: Pt lives with in 1 story home with basement and states no concerns at home. Pt is independent with ADL's. Transportation: Pt drives self and states no transportation concerns. DME/HHC: Pt has a POC and home concentrator for prn oxygen thru [facility]. Pt states has had HHC in the past and states no hx of SNF. Pt states no concerns with going home at time of discharge. Pt is retired. Pt states does not smoke cigarettes or drink ETOH. Pt states no further concerns/needs. CM to follow for any further discharge planning/needs. Advised pt to ask for CM if any further questions/concerns/needs arise, voices understanding. Pt Goal: Home Plan: [place] URMILA GUPTA
[2021-12-14 12:44] LABS: Pathologist Review Reviewed
--- NOTE | 2021-12-14 14:13 | PN.HOSP_ITS ---
Subjective Subjective Seen and examined. Patient was seen in the morning and afternoon. Objective Data Objective Data Vital Signs: Vital Signs Temp Pulse Resp BP Pulse Ox 97.9 F 70 12 102/61 99 12/14/21 13:24 12/14/21 13:24 12/14/21 13:24 12/14/21 13:24 12/14/21 13:24 Oxygen Flow Rate (L/min) 4 Oxygen Delivery Method Room Air Weight: 247 lb 9.266 oz Body Mass Index (BMI) 36.6 Intake & Output: Intake and Output for Last 24 Hours 12/12/21 12/13/21 12/14/21 23:59 23:59 23:59 Intake Total 1283.33 / 1283.33 950 / 950 Output Total 525 / 525 Balance 1283.33 / 1283.33 425 / 425 Lab / Micro Data Result Diagrams: 12/14/21 05:20 12/14/21 05:20 Labs: Laboratory Results - last 24 hr 12/13/21 21:25: WBC 1.6 L, RBC 4.21 L, Hgb 12.7 L, Hct 36.4 L, MCV 86.5, MCH 30.2, MCHC 34.9, RDW Std Deviation 47.0 H, RDW Coeff of Rosa 14.8 H, Plt Count 132 L, MPV 9.4, Immature Gran % (Auto) 0.000, Neut % (Auto) 88.9 H, Lymph % (Auto) 9.3 L, [place] % (Auto) 1.2, Eos % (Auto) 0.0, Baso % (Auto) 0.6, Absolute Neuts (auto) 1.4 L, Absolute Lymphs (auto) 0.15 L, Nucleated RBC % 0, Differential Comment SCANNED, Diff Path Review Reviewed 12/13/21 21:25: PT 14.3, INR 1.2, APTT 23.7 L 12/13/21 21:25: Sodium 136, Potassium 4.1, Chloride 106, Carbon Dioxide 23.0, Anion Gap 7, BUN 33 H, Creatinine 2.58 H, Estim Creat Clear Calc 25.50, Est GFR (MDRD) Af Amer 32 L, Est GFR (MDRD) Non-Af 26 L, BUN/Creatinine Ratio 12.8, Glucose 96, Calcium 8.8, Total Bilirubin 1.50 H, AST 15, ALT 18, Alkaline Phosphatase 133 H, Total Protein 6.7, Albumin 2.8 L, Globulin 3.9, Albumin/Globulin Ratio 0.7 L 12/13/21 21:25: Lactic Acid 1.3 12/13/21 21:25: Procalcitonin 1.51 H 12/14/21 02:15: COVID-19 (YADIRA) Not Detected 12/14/21 05:20: WBC 13.8 H, RBC 3.79 L, Hgb 11.5 L, Hct 33.3 L, MCV 87.9, MCH 30.3, MCHC 34.5, RDW Std Deviation 48.5 H, RDW Coeff of Rosa 15.1 H, Plt Count 167, MPV 9.1, Immature Gran % (Auto) 2.000 H, Neut % (Auto) 87.9 H, Lymph % (Auto) 2.3 L, [place] % (Auto) 7.5, Eos % (Auto) 0.0, Baso % (Auto) 0.3, Absolute Neuts (auto) 12.1 H, Absolute Lymphs (auto) 0.32 L, Nucleated RBC % 0 12/14/21 05:20: Sodium 135 L, Potassium 4.0, Chloride 105, Carbon Dioxide 21.0, Anion Gap 9, BUN 34 H, Creatinine 2.46 H, Estim Creat Clear Calc 26.74, Est GFR (MDRD) Af Amer 33 L, Est GFR (MDRD) Non-Af 28 L, BUN/Creatinine Ratio 13.8, Glucose 93, Calcium 7.9 L, Total Bilirubin 0.80, AST 15, ALT 15 L, Alkaline Phosphatase 99, Total Protein 5.8 L, Albumin 2.3 L, Globulin 3.5, Albumin/Globulin Ratio 0.7 L Micro: Microbiology 12/13/21 21:20 Blood Culture (Wb) - Anticubital Right Blood Culture - Preliminary 12/13/21 22:40 Urine, Nephrostomy Urine Culture - Preliminary Gram negative castro 12/13/21 21:25 Blood Culture (Wb) - Anticubital Left Blood Culture - Preliminary 12/13/21 22:40 Urine, Clean Catch Legionella Antigen - Final 12/13/21 22:40 Urine, Clean Catch Streptococcus pneumoniae Antigen (M - Final Streptococcus pneumonia Ag 12/13/21 21:17 Nasal Secretion SARS-CoV-2 Antigen (Rapid) - Final Radiography Diagnostic Testing: Radiology Impression Abdomen/Pelvis CT 12/13/21 21:00 IMPRESSION: Nonobstructing stones in the right kidney. No stone is identified in the right ureter. There is hydronephrosis in the right kidney. This is likely related to the ileal conduit in the right lower quadrant. Electronically Signed: Hola Caba MD at 22:10 EST , Chest X-Ray 12/13/21 21:35 IMPRESSION: Consolidative infiltrates or atelectasis in the lung bases. Electronically Signed: Hola Caba MD at 22:14 EST , Physical Exam Narrative General: Alert, Oriented x3, Cooperative HEENT: Atraumatic, PERRLA, EOMI, Normocephalic Oral: No Gingival or Mucosal Lesions/ Ulcerations Neck: Supple, No JVD, Negative Carotid Bruits Lungs: Air entry diminished in bilateral lung bases. No crepitation/rhonchi Cardiovascular: Sinus rhythm, Normal S1, Normal S2, No murmurs Abdomen: Bowel Sounds Present, Soft, Non Tender, Non-Distended : Right urostomy bag. Clear urine. Status post left nephrectomy, ureterectomy cholecystectomy and prostatectomy. No renal angle tenderness. No suprapubic tenderness. Extremities: No edema, Capillary Refill Less than 3 Seconds Skin: No rashes, No breakdown Musculoskeletal: No Tenderness to Palpation of Joints or Extremities Neurological: Cranial nerves II-XII grossly intact, DTR 2+/4 and Symmetrical, Neuro grossly intact Psych/Mental Status: Normal Affect, Appropriate. Assessment & Plan Assessment/Plan (1) Neutropenia due to infection: PLAN: The patient admitted with concern of complicated UTI and bilateral lower lobes Streptococcus pneumoniae pneumonia. 1. Gram-negative castro bacteremia secondary to partially treated complicated gram-negative castro UTI and bilateral lower lobes Streptococcus pneumoniae pneumonia. Sepsis ruled out as patient does not meet criteria for sepsis, qSOFA score 2 or more and other features of organ dysfunction like lactic acidosis, acute respiratory failure, thrombocytopenia, coagulopathy or hype rbilirubinemia/liver dysfunction. Patient has chronically elevated creatinine and follows in [facility]. Will obtain records from [facility]. Chest x-ray individually reviewed shows infiltrates in the right lung base and left lung base dissociative atelectasis Urinary antigen positive for strep pneumococcus. SARS-CoV-2 rapid antigen negative. Lactic acid normal. Patient did not had drop in blood pressure, altered mental status but tachypnea, qSOFA score 1. Respiratory rate was 33/min. Patient had leukopenia with neutropenia and absolute lymphopenia. BUN/creatinine, chronically elevated due to single kidney. Procalcitonin 1.51. Blood cultures x2+ of gram-negative rods. Urine culture gram-negative castro [id number] colonies. COVID-19 PCR negative 2 CKD stage IV, elevated creatinine due to single kidney with history of chronic nephrolithiasis with acute right renal calculi with hydronephrosis reviewed ileal conduit in the right lower quadrant.. CT abdomen shows 4 mm nonobstructing stone right kidney with hydronephrosis. Hydronephrosis may related to ileal conduit in the right lower quadrant. No stone identified in the right ureter.Soft tissue density material adjacent to the left external iliac vessels which may be related to recent inguinal hernia repair 3. 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 Patient follows given chronic oncologist Dr. Warren and [place] urologist Dr. J Luis Singh 4 HTN: Blood pressure is on lower side but not systolic less than 90 mmHg. He came with high blood pressure. Hold hypertensive meds Blood pressure is stable. Amlodipine continued. Losartan held secondary MARIA GUADALUPE DVT prophylaxis: Subcutaneous Lovenox ordered. Total time of the visit including total time spent in counseling or coordination of care, (more than 50% of the total time, spent in obtaining medical informati on from nurses and other ancillary care providers,explaining to the patient about labs, imaging, diagnosis and management), discussion with the patient and his regarding bacteremia, pneumonia and UTI, review of labs and imaging is 40 minutes. Charges/Coding Visit Charges Inpatient E&M: 60966 Subs Hosp L3
[2021-12-14] MEDS: 0.9% Normal Saline 1,000 ML 75 ML IV (15:33)
[2021-12-14] MEDS: proCHLORPERazine 10 MG/2 ML Vial 5 MG IV (21:23)
[2021-12-14] MEDS: MELATONIN 3 MG TABLET PO (21:24)
[2021-12-14] MEDS: Atorvastatin Calcium 20 MG Tablet PO (21:24)
[2021-12-15 02:46] VITALS: PULSE 91
[2021-12-15 03:51] VITALS: BP 130/70; PULSE 83; RESP 20; TEMP 36.5; O2SAT 95
[2021-12-15] MEDS: Senna/Docusate Sodium 1 Tablet 2 TABLET PO ×2 (04:31→08:26)
[2021-12-15] MEDS: proCHLORPERazine 10 MG/2 ML Vial 5 MG IV (04:31)
[2021-12-15 05:48] LABS: Absolute Lymphocyte Count 0.26 X10^3/uL (0.83-4.51); Absolute Neutrophil Count 5.6 X10^3/uL (2.0-7.7); Basophil# 0.01 X10^3/uL; Basophil% 0.2 % (0-1); Eosinophil# 0.01 X10^3/uL; Eosinophils% 0.2 % (0-5); Hematocrit 32.1 % (40-54); Hemoglobin 10.6 g/dL (13.0-16.5); Lymphocyte # 0.26 X10^3/ul (0.83-4.51); Mean Corpuscular Hgb 28.7 pg (27.0-32.0); Mean Platelet Vol. 9.9 fl (6.2-12.0); Monocyte# 0.59 X10^3/uL; NRBC Flagged by Analyzer 0 % (0-5); Neutrophil # 5.62 X10^3/uL (2.7-7.7); Neutrophil % 85.8 % (47-70); POSITIVE DIFFERENTIAL YES; POSITIVE MORPHOLOGY YES; Platelet Count 130 K/mm3 (150-450); RBC Distribution Width CV 15.3 % (11.6-14.6); RBC Distribution Width SD 49.1 fl (35.1-43.9); Red Blood Count 3.69 M/mm3 (4.6-6.2); White Blood Count 6.5 K/mm3 (4.4-11.0)
[2021-12-15 05:57] LABS: Differential Indicated SCAN CRITERIA MET
[2021-12-15 06:15] LABS: Differential Comment SCANNED
[2021-12-15 06:23] LABS: Anion Gap 8 (5-15); BUN 41 mg/dL (7-18); BUN/Creat Ratio 17.2 RATIO (10-20); Chloride 106 mmol/L (98-107); Creatinine, Serum 2.39 mg/dL (0.70-1.30); EST Glomerular Filtration Rate 28 mL/min (>60); Est Glom Filt Rate - Afr Amer 34 mL/min (>60); Estimated Creatinine Clearance 27.53 ml/min; Glucose 100 mg/dL (74-106); Potassium 3.9 mmol/L (3.5-5.1); Sodium Level 134 mmol/L (136-145)
[2021-12-15 07:00] VITALS: PULSE 80
[2021-12-15 07:30] VITALS: O2SAT 96
[2021-12-15] MEDS: 0.9% Normal Saline 1,000 ML 75 ML IV (08:25)
[2021-12-15] MEDS: Amitriptyline 25 MG Tablet PO (08:27)
[2021-12-15] MEDS: Heparin Injection (Vial) 5,000 UNIT/ML VIAL 5000 UNIT SC (08:27)
[2021-12-15 09:30] VITALS: BP 109/78; PULSE 81; RESP 16; TEMP 36.8; O2SAT 94
[2021-12-15] MEDS: 0.9% Saline Lock 10 ML Syringe IV ×2 (09:35→09:55)
[2021-12-15] MEDS: Ondansetron 4 MG/2 ML Vial IV (09:55)
--- NOTE | 2021-12-15 10:17 | DCINST_ITS ---
Discharge Instructions Diet Discharge Diet: Low fat / Low cholesterol and 2000 mg Sodium Diet Activity Weight Bearing Status: Weight bearing as tolerated Dressing / Incision Call your doctor if you observe: Fever of 101 or Higher, Coldness, Increased Pain, Numbness or Tingling, Change in Color, Inability to urinate, Inability to have a bowel movement, Shortness of breath, Dizziness, Fainting spells, Swelling in the ankles, Chest pain, Prolonged hiccupping, Increased palpitations (irregular heartbeat), Calf discomfort and Uncontrolled pain Follow Up Care Test Results: Test results from this visit will be discussed in further detail at your follow-up appointment, if applicable. Discharge Plan Admission Admit Date/Time: 12/13/21 22:33 Primary Reason for Your Visit: Streptococcal pneumoniae pneumonia Attending Provider: Sukhwinder Matthews Primary Care Provider: Sonido Ramsey Instructions Additional Instructions / Restrictions: Follow-up BMP in 3 days with PCP. Patient requesting discharge. Patient follows outside urologist Dr. Du Singh Patient also follows banking attorney for interstitial pneumonitis/interstitial lung disease. Advised BMP in 2 to 3 days and follow-up with PCP. Advised [id number] lactobacillus three times daily for 2 weeks Discharge Orders/Prescriptions Prescriptions: New sennosides-docusate sodium [Stool Softener-Stimulant Laxat] 8.6-50 mg Tablet 2 tab PO DAILY Qty: 0 RF: 0 levofloxacin 500 mg tablet 500 mg PO Q48H Qty: 4 RF: 0 acidophilus-pectin, citrus 25 million cell -100 mg Tablet 1 tab PO TID Qty: 0 RF: 0 Continued amlodipine 2.5 mg tablet 2.5 mg PO QHS RF: 0 amitriptyline 50 mg tablet 25 mg PO BID RF: 0 calcitriol 0.25 mcg capsule 0.25 mcg PO QMWF RF: 0 rosuvastatin 10 mg tablet 10 mg PO QHS RF: 0 Held losartan 100 mg tablet 100 mg PO QHS RF: 0 Hold Instructions: Hold for 2 days and then resume losartan 50 mg daily for 2 days then increase 100 mg daily. Referrals / Follow Up: Sonido Ramsey MD [Primary Care Provider] - In 1 Week Disposition Disposition (needs filled in before D/C Order can be placed): Home, Self Care
--- NOTE | 2021-12-15 11:23 | PCM.DC.SUM ---
Providers Date of Admission: 12/13/21 Date of Discharge: 12/15/21 Primary Care Physician: Dr. Sonido Ramsey MD Reason For Visit: SEPSIS Diagnosis Discharge Diagnosis (1) Neutropenia due to infection: Status: Acute Code(s): D70.3 - Neutropenia due to infection Medications at Discharge Home Medications amitriptyline 25 mg PO BID 12/13/21 amlodipine 2.5 mg PO QHS 12/13/21 calcitriol 0.25 mcg PO QMWF 12/13/21 losartan 100 mg PO QHS 12/13/21 rosuvastatin 10 mg PO QHS 12/13/21 levofloxacin 500 mg PO Q48H #4 tab 12/14/21 sennosides-docusate sodium [Stool Softener-Stimulant Laxat] 2 tab PO DAILY #0 tab 12/14/21 acidophilus-pectin, citrus 1 tab PO TID #0 tab 12/15/21 Hospital Course Summary of Care Provided Hospital Course: The patient admitted with concern of complicated UTI and bilateral lower lobes Streptococcus pneumoniae pneumonia. 1. Gram-negative castro bacteremia secondary to partially treated complicated gram-negative castro UTI and bilateral lower lobes Streptococcus pneumoniae pneumonia. Sepsis ruled out as patient does not meet criteria for sepsis, qSOFA score 2 or more and other features of organ dysfunction like lactic acidosis, acute respiratory failure, thrombocytopenia, coagulopathy or hyperbilirubinemia/liver dysfunction. Patient has chronically elevated creatinine and follows in [facility]. Could not get the [facility] while the patient was here. Chest x-ray individually reviewed shows infiltrates in the right lung base and left lung base dissociative atelectasis Urinary antigen positive for strep pneumococcus. SARS-CoV-2 rapid antigen negative. Lactic acid normal. Patient did not had drop in blood pressure, altered mental status but tachypnea, qSOFA score 1. Respiratory rate was 33/min. Patient had leukopenia with neutropenia and absolute lymphopenia. BUN/creatinine, chronically elevated due to single kidney. Procalcitonin 1.51. Blood cultures x2+ of preliminary lactose nonfermenter, gram-negative rods. I called microbiology lab that seems not Pseudomonas, E. coli or Klebsiella but possible Serratia, Proteus or others. Urine culture gram-negative castro [id number] colonies. COVID-19 PCR negative. Patient is discharged on Levaquin as per antibiogram sensitivity. 2 CKD stage IV, elevated creatinine due to single kidney with history of chronic nephrolithiasis with acute right renal calculi with hydronephrosis reviewed ileal conduit in the right lower quadrant.. CT abdomen shows 4 mm nonobstructing stone right kidney with hydronephrosis. Hydronephrosis may related to ileal conduit in the right lower quadrant. No stone identified in the right ureter.Soft tissue density material adjacent to the left external iliac vessels which may be related to recent inguinal hernia repair 12/15: Patient baseline creatinine is about 2.5 because of single kidney. Mild improvement in creatinine from 2.5-2.39 but not measured change in creatinine clearance. Patient creatinine is on baseline and educated about kidney function. 3. History of left kidney and left ureter cancer in 2015 status post nephrectomy and then bladder cancer prostate cancer in August 2021 with cystectomy and right ileal conduit. Patient follows given chronic oncologist Dr. Warren and [place] urologist Dr. J Luis Singh 4 HTN: Blood pressure is on lower side but not systolic less than 90 mmHg. He came with high blood pressure. Hold hypertensive meds Blood pressure is stable. Amlodipine continued. Losartan held secondary MARIA GUADALUPE DVT prophylaxis: Subcutaneous Lovenox ordered. Discharge medication reconciliation done. Discharge follow-up instructions completed. Discharge process discussed with the patient and all questions were answered to patient's satisfaction. Prescription sent to patient pharmacy. Total time spent, exact 35 minutes on discharge meds reconciliation, examination, coordination of care with nurses and ancillary staff, review of imaging and blood test and discussion with the patient on follow-up instructions Physical Exam Narrative The patient has single kidney are his baseline creatinine is 2.5 that is normal for him. Complain of mild abdominal cramps/discomfort but no severe pain or colicky pain. General: Alert, Oriented x3, Cooperative HEENT: Atraumatic, PERRLA, EOMI, Normocephalic Oral: No Gingival or Mucosal Lesions/ Ulcerations Neck: Supple, No JVD, Negative Carotid Bruits Lungs: Air entry diminished in bilateral lung bases. No crepitation/rhonchi Cardiovascular: Sinus rhythm, Normal S1, Normal S2, No murmurs Abdomen: Bowel Sounds Present, Soft, Non Tender, Non-Distended. No palpable mass. : Right urostomy bag. Clear urine. Status post left nephrectomy, ureterectomy cholecystectomy and prostatectomy. No renal angle tenderness. No suprapubic tenderness. Extremities: No edema, Capillary Refill Less than 3 Seconds Skin: No rashes, No breakdown Musculoskeletal: No Tenderness to Palpation of Joints or Extremities Neurological: Cranial nerves II-XII grossly intact, DTR 2+/4 and Symmetrical, Neuro grossly intact Psych/Mental Status: Normal Affect, Appropriate. Weight / BMI Weight Weight: 247 lb 9.266 oz Body Mass Index (BMI) 36.6 ABG / Lab / Microbiology Data Result Diagrams: 12/15/21 05:18 12/15/21 05:18 Laboratory: Laboratory Results - last 24 hr 12/13/21 21:25: Diff Path Review Reviewed 12/15/21 05:18: WBC 6.5, RBC 3.69 L, Hgb 10.6 L, Hct 32.1 L, MCV 87.0, MCH 28.7, MCHC 33.0, RDW Std Deviation 49.1 H, RDW Coeff of Rosa 15.3 H, Plt Count 130 L, MPV 9.9, Immature Gran % (Auto) 0.800, Neut % (Auto) 85.8 H, Lymph % (Auto) 4.0 L, [place] % (Auto) 9.0, Eos % (Auto) 0.2, Baso % (Auto) 0.2, Absolute Neuts (auto) 5.6, Absolute Lymphs (auto) 0.26 L, Nucleated RBC % 0, Differential Comment SCANNED 12/15/21 05:18: Sodium 134 L, Potassium 3.9, Chloride 106, Carbon Dioxide 20.0 L, Anion Gap 8, BUN 41 H, Creatinine 2.39 H, Estim Creat Clear Calc 27.53, Est GFR (MDRD) Af Amer 34 L, Est GFR (MDRD) Non-Af 28 L, BUN/Creatinine Ratio 17.2, Glucose 100, Calcium 8.0 L Microbiology: Microbiology 12/13/21 21:25 Blood Culture (Wb) - Anticubital Left Blood Culture - Preliminary Gram negative castro 12/13/21 21:20 Blood Culture (Wb) - Anticubital Right Blood Culture - Preliminary Gram negative castro 12/13/21 22:40 Urine, Nephrostomy Urine Culture - Preliminary Gram negative castro Mixed Culture 12/13/21 22:40 Urine, Clean Catch Legionella Antigen - Final 12/13/21 22:40 Urine, Clean Catch Streptococcus pneumoniae Antigen (M - Final Streptococcus pneumonia Ag 12/13/21 21:17 Nasal Secretion SARS-CoV-2 Antigen (Rapid) - Final D/C Instructions Discharge Diet: Low fat / Low cholesterol and 2000 mg Sodium Diet Weight Bearing Status: Weight bearing as tolerated Call your doctor if you observe: Fever of 101 or Higher, Coldness, Increased Pain, Numbness or Tingling, Change in Color, Inability to urinate, Inability to have a bowel movement, Shortness of breath, Dizziness, Fainting spells, Swelling in the ankles, Chest pain, Prolonged hiccupping, Increased palpitations (irregular heartbeat), Calf discomfort and Uncontrolled pain Meaningful Use Info Meaningful Use Diagnoses (Choose all that apply): None applicable Discharge Plan Admission Admit Date/Time: 12/13/21 22:33 Primary Reason for Your Visit: Streptococcal pneumoniae pneumonia Attending Provider: Sukhwinder Matthews Primary Care Provider: Sonido Ramsey Instructions Additional Instructions / Restrictions: Follow-up BMP in 3 days with PCP. Patient requesting discharge. Patient follows outside urologist Dr. Du Singh Patient also follows software engineer advisor for interstitial pneumonitis/interstitial lung disease. Advised BMP in 2 to 3 days and follow-up with PCP. Advised [id number] lactobacillus three times daily for 2 weeks Discharge Orders/Prescriptions Prescriptions: New sennosides-docusate sodium [Stool Softener-Stimulant Laxat] 8.6-50 mg Tablet 2 tab PO DAILY Qty: 0 RF: 0 levofloxacin 500 mg tablet 500 mg PO Q48H Qty: 4 RF: 0 acidophilus-pectin, citrus 25 million cell -100 mg Tablet 1 tab PO TID Qty: 0 RF: 0 Continued amlodipine 2.5 mg tablet 2.5 mg PO QHS RF: 0 amitriptyline 50 mg tablet 25 mg PO BID RF: 0 calcitriol 0.25 mcg capsule 0.25 mcg PO QMWF RF: 0 rosuvastatin 10 mg tablet 10 mg PO QHS RF: 0 Held losartan 100 mg tablet 100 mg PO QHS RF: 0 Hold Instructions: Hold for 2 days and then resume losartan 50 mg daily for 2 days then increase 100 mg daily. Referrals / Follow Up: Sonido Ramsey MD [Primary Care Provider] - In 1 Week Disposition Disposition (needs filled in before D/C Order can be placed): Home, Self Care Charges/Coding Visit Charges Inpatient E&M: 31093 Disch Hosp
== END 2021-12-15 14:44 | disposition home or self-care (01) | DRG 194 ==
LOC: ED 22:26 → PCU 22:44
PROVIDERS: Admitting Provider Hospitalist; Emergency Provider Emergency Medicine; PCP Internal Medicine; Visit Provider Internal Medicine
DX: J13 Pneumonia due to Streptococcus pneumoniae (principal); N17.9 Acute kidney failure, unspecified; N18.4 Chronic kidney disease, stage 4 (severe); N13.6 Pyonephrosis; D70.3 Neutropenia due to infection; J84.10 Pulmonary fibrosis, unspecified; D69.59 Other secondary thrombocytopenia; K40.20 Bilateral inguinal hernia, without obstruction or gangrene, not specified as recurrent; I12.9 Hypertensive chronic kidney disease with stage 1 through stage 4 chronic kidney disease, or unspecified chronic kidney disease; Z85.528 Personal history of other malignant neoplasm of kidney; Z85.54 Personal history of malignant neoplasm of ureter; Z90.5 Acquired absence of kidney; Z85.51 Personal history of malignant neoplasm of bladder; Z85.46 Personal history of malignant neoplasm of prostate
CPT/HCPCS: 36415; 71045; 74176; 80048; 80053; 83605; 84145; 85025; 85610; 85730; 87040; 87077; 87086; 87088; 87186; 87426; 87449; 87635; 93005; 99285; J7030; A4216; J0696; J2405; U0003; U0005

== ENCOUNTER 2022-02-04 13:30 | Outpatient (CLI) | payer MEDICARE, SELFPAY ==
--- NOTE | 2022-02-04 13:44 | PR.ITP_ITS ---
General Information2 - General Information Admitting Diagnosis: INTERSTITIAL LUNG DISEASE - IPF Secondary Diagnosis: CHRONIC KIDNEY DISEASE -III, HTN, GERD, OBESITY -CLASS I - PFT FEV1:: 3.16 - 105% PREDICTED FVC:: 3.58 - 90.6% PREDICTED FEV1/FVC%:: 88 - 116% PREDICTED - Personal Learning Style/Barriers Personal Learning Style:: Audio/Visual, Written Barriers to Learning: Vision impaired, Hearing impaired Stage of change r/t lifestyle modifications: Contemplation Educational Classes [place]: Living with Chronic Lung Disease: Initial Assessment, Breathing Retraining: Initial Assessment, Exercise: Initial Assessment, Energy Conservation: Initial Assessment, Preventing infection: Initial Assessment - Education/Goals Individual Counseling: Initial Assessment: High Blood Pressure, Overweight/Obesity, Waist Circumference: <35 females <40 males [place] Patient Goals: Improve energy level: Initial Assessment, Improve knowledge of lung disease: Initial Assessment, Improve my quality of life: Initial Assessment Exercise - Initial Assessment - Visit Date of Eval: 02/04/22 Session Number:: 0 - PRE-PULM REHAB EVALUATION - Problem/Goals Problems: Deconditioning, No regular exercise Goals:: Resistance: 2-3x/weekly - Functional Capacity Test Number of feet walked: 720 Lowest SPO2 %: 90 - ROOM AIR O2 L/M: 0 - Physician Prescribed Exercise Modalities: Treadmill, Airdyne, NuStep Intensity: 60-80% of age predicted maximum heart rate reserve Current METSs:: 3.0 Target HR:: 118 - 88-117 Resting Blood Pressure: 118/70 EKG Type: SINUS TACHYCARDIA - Plan Plan and Plan to Review:: Benefits of exercise, Core components of exercise, How to measure dyspnea level, How to monitor dyspnea level, Exercise intensity, Exercise safety guideline, Home exercise guidelines, Jesús: 3-4/11-13 Nutrition/Wt Mgmt - Initial - Visit Date of Eval: 02/04/22 Session Number:: 0 - PRE-PULM REHAB EVALUATION - Problems/Goals Problems: Overweight Goals: Wt Loss 1-2 lbs per week - Weight Management Knowledge Deficit Management of:: Overweight Admit Height:: 5 ft 9 in Admit Weight:: 245 lb Admit BMI:: 36.1 - Intervention Referral to dietitian:: Yes - STRUCTURED WEIGHT LOSS / Will attend diet classes:: Yes Intervention/Plan: Instruct on ideal BMI & set weight loss goal w/patient, Assist pt to ID & incorporate diet changes for weight loss by S9, Refer to Structured Weight Loss program as appropriate, Encourage goal of using 250- 300dcal per session for weight loss - Plan Nutrition Plan: Yes Review BMI or WC & identify target wt & strategies for wt control, Yes Nutrition education class:, Yes Medication education class [Prednisone]:, Yes Weight control education class: Psychosocial - Initial Assess - Visit Date of Eval: 02/04/22 Session Number:: 0 - PRE-PULM REHAB EVAL - Problems/Goals History of Emotional Disorders: Anxious - Psychosocial Test Tool Used:: Pulmonary QOL, PHQ-9 Questionnaire Referred to MD for counseling:: No - Referral to Behavioral Health PS - Interventions: Yes Attend Stress Management Classes, No Referral to Behavioral Health if PHQ-9 score >9:, No Referral to [facility], No Referral to Physician if PHQ-9 if score is 5-9: - Intervention/Plan: See List Interventions/Plan:: Assess stressors,coping strategies & signs of derpression on admission, Instruct/assist pt to develop coping & personal stress Mgt strategies, Instruct patient to recognize signs & symptoms of depression, Instruct patient to recog Oxygen & Oxygen Titration Init - Visit Date of Eval: 02/04/22 Session Number:: 0 - PULM REHAB EVALUATION - Initial Assessment Oxygen on Admission: Oxygen w/activity SpO2:: 99 Port O2:: 2 DME:: QUINTEN Patient Reports:: Non-productive cough - Goal Oxygen & Oxygen Tritration Goals: Effective hypoxemia control, Uses O2 as Rx'd/safely - Plans Plan: Monitor SpO2 rest & with exercise, Train appropriate O2 use at rest, Train appropriate O2 use with exercise Reviewed prescribed medications:: Purpose, Schedule, Side effects, Importance of compliance Instruct correct technique/timing & care:: MDI, DPI, Nebulizer Bronchial Hygiene Plan: Controlled cough, VEST, Hydration, Hand hygiene, Signs/symptoms to report: Core Components - Initial - Visit Date of Eval: 02/04/22 Session Number:: 0 - PRE-PULM REHAB EVALUATION - Hypertension Hypertension Diagnosis:: Hypertension ICD-10 I10 BP: 118/70 [employer] Hypertension Guidelines: [employer] Hypertension Guidelines. Normal BP Less than 120/80. Elevated BP 120/80. Hypertension Stage 1: BP 130-139/80-89. Hypertesnion Stage 2: BP 140 or higher/ 90 or higher. Hypertension Crisis: BP higher than 180/120 Low Sodium diet: Yes Outcomes/Goals: Able to verbalize/achieve optimal blood pressure <130/80, Incorporates diet changes & exercise for blood pressure control by DC - Tobacco - Initial Assessment Tobacco Program Goals: Complete smoking cessation. Attend education classes. Improve Knowledge Test score Do you use smokeless tobacco?: No Smoking Cessation Referral:: No Individual Education/Counseling:: No Education Schedule Given:: Yes Gave Education Materials For:: Pulmonary Disease, Risk Factors, Breathing Techniques, Medical Compliance, Pulmonary A&P, Exacerbation Signs & Symptoms, Stress & Relaxation - Exacerbation Mgmt & Airway Clearance Problems:: Hypoxemia, Poor knowledge of O2 use/safety Hypoxemia Goals:: Hypoxemia managed, Port system, Using O2 as Rx's safely Bronchial Hygiene Problems:: Respiratory infection Prevention/Management Goals: Pt demonstrates effective cough, effective secretion clearance., Pt describes signs and symptoms of infection. Patient Reports:: Non-productive cough Plan: Monitor SpO2 rest & with exercise, Train appropriate O2 use at rest, Train appropriate O2 use with exercise, Train O2 safety & systems Instruct correct technique/timing & care:: MDI, DPI Bronchial Hygiene Plan: Controlled cough, VEST, Hydration, Hand hygiene, Signs/symptoms to report: - Medication Interventions/plans: Instruct on medication effects & side effects, Instruct importance of taking meds as ordered & assist problem solving Medication Goals: Correct technique/timing & care of MDI, DPI, nebulizer, and spacer. Medications: Yes MDI, Yes DPI Reviewed prescribed medications:: Purpose, Schedule, Side effects, Importance of compliance - Diabetes Diabetes:: No Core Components - 30 DAYS Core Components - 60 DAYS Core Components - 90 DAYS Core Components - Final Patient Health Questionnaire Initial Assessment 1. Little interest or pleasure in doing things: Not at all 2. Feeling down, depressed, or hopeless: Not at all 3. Trouble falling or staying asleep, or sleeping too much: More than half the days 4. Feeling tired or having little energy: More than half the days 5. Poor appetite or overeating: Several days 6. Feeling bad about yourself -- or that you are a failure or have let yourself or your family down: Not at all 7. Trouble concentrating on things, such as reading the newspaper or watching television: Not at all 8. Moving or speaking so slowly that other people could have noticed. Or the op posite - being so fidgety or restless that you have been moving around a lot more than usual: Nearly every day 9. Thoughts that you would be better off , or of hurting yourself in some way: Not at all How difficult have these problems made it for you to do your work, take care of things at home, or get along with other people?: Somewhat difficult Total Score: 8 Knowledge Questionaire (BCKQ) - Information Information: [place] COPD Knowledge Questionnaire (BCKQ) This questionnaire is designed to find out what you know about your lung problem. It should be completed without help form anyone else. This usually takes between 10 and 20 minutes. Your answers will help us to find out what information you need to help you to understand and manage your lung condition. Paul the [place] which you think is the correct answer. - Questions b. COPD can only be confirmed by breathing tests: Don't know c. In COPD ther is usually gradual worsening over time: True d. In COPD oxygen levels in the blood are always low: Don't know e. COPD is usually in people less than 40 years old: Don't know [place] than 80% of COPD cases are caused by cigarette smoking: True b. COPD can be caused by occupational dust exposure: True c. Longstanding asthma can develop into COPD: True d. COPD is commonly an inherited disease: False e. Women are less vunerable to the effects of cigarette than men: False a. Swelling of the ankles is common in COPD:: Don't know b. Fatigue [tiredness] is common in COPD: True c. Wheezing is common in COPD: True d. Crushing chest pain is common in COPD: False e. Rapid weight loss is common in COPD: False a. Severe breathlessness prevents travel by air: False b. Breathlessness can be worsened by eating large meals: Don't know c. Breathlessness means that your oxygen levels are low: True d. Breathlessness is a normal response to exercise: True e. Breathlessness is primarily caused by a narrowing of the bronchial tubes: Don't know a. Coughing phlegm is a common symptom in COPD: Don't know b. Clearing phlegm is more difficult if you get dehydrated: True c. Bronchodilator inhalers can help clear phlegm: Don't know d. Phlegm causes harm if swallowed: Don't know e. Clearing phlegm can be assisted by breathing exercises: Don't know a. Chest infections often cause coughing of blood: True b. Chest infection phlegm usually becomes coloured (ylw/grn): True cExerbations (episodes of worsening) can occur in the absence of chest infection: Don't know d. Chest infections are always accompanied by a high temperature: Don't know e. Steroid tablets should be taken whenever there is an exacerbation: False aWalking excercises better than breathing to improve fitness: True b. Exercise should be avoided as it strains the lungs: False c. Exercise can help maintain your bone density: True d. Exercise helps relieve depression: True e. Exercise should be stopped if it makes you breathless: False a. Stopping smoking will reduce the risk of heart disease: True b. Stopping smoking will slow down further lung damage: True c. Stopping smoking is pointless as the damage is done: False d.Stopping smoking usually results in improved lung function: False eNicotine replacement therapy only available on prescription: Don't know a. A flu jab is recommended every year: True b. You can get flu from having a flu jab: False c. You can only have a flu jab if you are 65 or over: False d. A pneumonia jab protects against all forms of pneumonia: Don't know e.You can have a pneumonia jab and a flu job on the same day: True a. Bronchodilators act quickly (within 10 minutes): Don't know b. Both short & long acting bronchodilators can be taken on the same day: Don't know c. Spacers (volumatic,nebuhaler,serochamber)should be dried w/atowel after washing: True d. A spacer device increases the medication to the lungs: Don't know e. Tremor may be a side effect of bronchodilators: Don't know a. To be effective, the course should last at least 10 days: True b. Excessive use of antibiotics can cause resistant bacteria (germs): True c. Antibiotics will clear all chest infections: False d. Antibiotic treatment is necessary for an exacerbation (worsening) however mild: Don't know e. Seek advice if antibiotics cause severe diarrhoea: True a. Steroid tablets help strengthen muscles: True b. Steroid tablets should be avoided if there is a chest infection: Don't know c. The risk of long-term side effects due to steroids is less w/short courses then w/continous treatment: True dIndigestion is common side effect from using steroid tablet: True e. Steroid tablets can increase your appetite: True a. Inhaled steroids should be stopped if you are given steroid tablets: Don't kn ow bSteroid inhalers can be used for rapid relief breathlessnes: Don't know c. Spacer devices reduce the risk of getting thrush in the mouth: Don't know d.Steroid inhaler should be taken before your bronchodilator: Don't know e. Inhaled steroids improve lung function in COPD: Don't know Self-Efficacy Initial Assessment We would like to know how confident you are in doing certain activities. Please select your confidence level for:: Select your confidence level for the following using the scale 1-10 where 1 is not at all confident and 10 is totally confident. Your score is the average of all 6 responses. Fatigue: How confident are you that you can keep the fatigue caused by your disease from interfering with the things you want to do? Select Number: 6 Physical Discomfort or Pain: How confident are you that you can keep the physical discomfort or pain of your disease from interfering with the things you want to do? Select Number: 8 Emotional Distress: How confident are you that you can keep the emotional distress caused by your disease from interfering with the things you want to do? Select Number: 8 Other Symptoms or Health Problems: How confident are you that you can keep other symptoms or health problems from interfering with the things you want to do? Select Number: 6 Different Tasks and Activities: How confident are you that you can do the different tasks and activities needed to manage your health condition so as to reduce your need to see a doctor? Select Number: 9 Medication: How confident are you that you can do things other than just taking medication to reduce how much your illness affects your everyday life? Select Number: 8 Total Score:: 7 Nutrition Survey - Nutrition Survey Initial Have you lost >10 lbs over the past 2 months without trying?: No Are you following a special diet at home for diabetes, low fat, or low salt?: No Are you interested in meeting with a dietitian for help understanding your diet?: No Do you eat less than 3 meals a day?: No Do you eat fatty meats (asencio, sausage, ribs, etc), fried foods, desserts, large amounts of salad dressings, margarine, butter, or cheese most days?: Yes Do you have food allergies? [Enter types in comment field]: No Do you eat in restaurants more than 3 times a week?: No Do you season food with salt, seasoning salt, or garlic salt?: No Do you used canned, boxed, frozen meals, or soups, seasoning packets?: No Total Score:: 1
--- NOTE | 2022-02-04 13:44 | PR.HP_ITS ---
History of Present Illness Arrival date:: 02/04/22 Arrival time:: 13:30 Date of Referral:: 01/28/22 Date of Evaluation: 02/04/22 Referring Physician: DR. DOM ALEJANDRO Primary Diagnosis: INTERSTIAL LUNG DISEASE - IPF History of Present Illness: INTERSTITIAL LUNG DISEASE - IPF [facility] Breathless Scale: When is the patient short of breath? Y/N Grade: Description of Breathlessness: 0 I only get breathless with strenuous exercise. 1 I get short of breath when hurrying on level ground or walking up a slight hill. 2 On level ground, I walk slower than people of the same age because of breathless, or have to stop for breath when walking at my own pace. 3 I stop for breath after walking 100 yards or after a few minutes on level ground. 4 I am too breathless to leave the house or I am breathless when dressing. Respiratory Problems: Yes: Fatigue, Able to Speak in Full Sentences, Dizziness, Dyspnea with Activity, Cough with Secretions No: Retain Secretions, Limited Range of Motion, Chest Pain, Wheezing, Ankle Swelling, Anxiety, Panic, Dyspnea at Rest, Dyspnea Lying Down Flat - Secretions Thick:: No Thin:: No Cough:: Yes A.T.C.: Yes Hx of Sleep Apnea: No Do you snore loudly (louder than talking or can be heard through closed doors)?: Yes Do you often feel tired/ fatigued/ sleepy during daytime?: Yes Has anyone observed you stop breathing during sleep?: No History of Hypertension (for STOP score): Yes - BEEN A FEW YEARS, HAD A HOME STUDY DONE. WOULD SUGGEST FORMAL OVERNIGHT SLEEP STUDY. STOP Results: Positive Home Medications: Home Medications amitriptyline 25 mg PO BID 12/13/21 amlodipine 2.5 mg PO QHS 12/13/21 calcitriol 0.25 mcg PO QMWF 12/13/21 losartan 100 mg PO QHS 12/13/21 rosuvastatin 10 mg PO QHS 12/13/21 levofloxacin 500 mg PO Q48H #4 tab 12/14/21 sennosides-docusate sodium [Stool Softener-Stimulant Laxat] 2 tab PO DAILY #0 tab 12/14/21 acidophilus-pectin, citrus 1 tab PO TID #0 tab 12/15/21 Allergies/Adverse Reactions: Allergies No Known Allergies Allergy (Verified 12/13/21 21:00) Medical Utilization Do you use a peak flow meter at home?: No Do you use a spacer device with your inhalers?: No Number of hospital visits in the last year?: 2 - KIDNEY STONES-NOV 2021; JUL 2021 UREOSTOMY Number of emergency room visits in the last year?: 1 Do you see your physician on a regular schedule?: Yes How often?: 3 MONTH Advanced Directives - Advanced Directives Power of Facilities Engineering Manager: Yes Living Will: Yes Advance Directives Information Provided: No Advance Directives on File: No DNR Order?:: Yes - MOLST See MOLST form: No Past Medical History - Covid-19 Screening Fever: No Unexplained muscle aches: No Current respiratory symptoms: Yes - PERSTITENT COUGH RELATED TO THE PF Upper respiratory infections symptoms: No Gastro-intestinal symptoms: Yes [id number] symptoms: No Has tested positive for COVID-19 in last 30 days: No Date of testin02/04/22 - FULLY VACCINATED AND TWO BOOSTERS Had contact w/person w/symptoms or Covid-19 (+) last 14 days: No Has High Risk Exposures ID'd by Health dept/Inf Control team: No 65 years or older:: Yes Lives in Assisted Living facility:: No Has a chronic lung disease or moderate to severe asthma:: Yes Has a serious heart condition:: No Immunocompromised:: Yes Severely obese (Body Mass Index of 40 or higher):: Yes Diabetic:: No Has chronic kidney disease undergoing dialysis:: Yes Has liver disease:: No Medical History: Past Medical History (Last Reviewed 12/13/21 @ 23:[address] 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 Bethel Gtz MD) Other Cancer - Current/ Previous Services Pulmonary Rehab:: No Social History - Smoking History Smoking Status: Never smoker - Alcohol Use Alcohol Usage: No - Substance Abuse Hx Substance Use: No - Occupation Occupation (List type of work in comments):: Retired - Hobbies, Recreation, Social Activities Hobbies: Exercise - [employer] CLASS, Other - TRAVEL, [employer] Recreational Activities: I am able to engage in most, but not all activities Functioning ADL/IADL - Current Ability Current Ability: Independent Self-Care (e.g.,grooming, dressing, & bathing), Independent Ambulation, Independent Transfer, Independent Household tasks (e.g., light meal prep, laundry, shopping) - Pt Functioning Prior to Problem Prior Functioning: Self-Care (e.g.,grooming, dressing, & bathing): Independent, Ambulation: Independent, Transfer: Independent, Household tasks (e.g., light meal prep, laundry, shopping): Independent Social Environment - Status Marital Status: - Current Living Arrangements Living Environment:: Spouse - Children How many children do you have?: 2 Do any of your children live nearby?: Yes - Safety Do you feel safe in your surroundings?: Yes - Assistance Do you need any assistance at home?: NO Review of Systems Review of Systems: Right click = Denies ([place]ash). Left click = Reports ([place]) Respiratory: Reports: Cough, Pleuritic Pain, SOB upon Exertion, Sputum production - REECENTLY PALE YELLOW SECRETIONS LAST WEEK. USUALLY CLEAR., Appetite, Normal, Dizziness/Lightheadedness - IF BENDS OVER AND STANDS UP TO FAST., Fatigue, Sleep, Normal - SLEEP GOOD.. Denies: SOB at Rest, Wheezing, PVD, Sexual changes Is Patient Pain Free?: No Pain Location: back Pain Level: 7/10 - CHRONIC BACK PAIN FROM ARTHRITIS LUMBAR REGION Risk Factor Assessment - Vital Signs Temperature: 97.1 F Pulse Rate: 72 Pulse Rhythm: Regular Respiratory Rate: 16 Pulse Ox: 99 Blood Pressure: 118/70 - Diabetes Nutrition Referral for Diabetes: No - Obesity Height: 5 ft 9 in Weight:: 245 lb Weight in Pounds: 245.0 lbs Weight Source: Estimated by Patient Body Mass Index (BMI): 36.1 Nutritional Referral for Obesity: Yes - WHY WEIGHT PROGRAM - Physical Activity Physical Inactivity: Reg Exercise 30 min/day - PJ CLASS - Risk Stratification Risk Guidelines: Lowest Risk: Risk Factor for Smoking, Risk Factor for Diabetes, Risk Factor for Hypertension - 118/70, Risk Factor for Sedentary Lifestyle, Risk Factor for Depression, Moderate Risk: Risk Factor for Dyslipidemia, Highest Risk: Risk Factor for Obesity Motivation - Motivation to Participate On a scale of 1 to 10, how prepared are you to commit to attending program?: 10 What do you see as barriers to successfully being able to complete the program?: NO What do you see as the benefits of succesfully completing the program? In other words, what do you hope to get out of participating in the program?: QUIT COUGHING, OR CONTROL, KEEP HEALTHY Are there issues you are dealing with that will interfere with completing the program?: TRAVEL IN FEBRUARY 2022 Do you have a spouse or signficant other, family or friends who will help support you to complete the program?: YES Diagnostic Data Review - Pulmonary Function Test FEV1:: 3.16 FVC:: 3.58 FEV1/FVC%:: 88
[2022-02-04 14:05] VITALS: BP 118/70; O2SAT 99; BMI 36.1
[2022-02-04 14:21] VITALS: BP 118/70; PULSE 72; RESP 16; TEMP 36.2; O2SAT 99; BMI 36.1
== END 2022-02-04 23:59 | disposition home or self-care (01) ==
LOC: PR 13:32
PROVIDERS: PCP Internal Medicine; Referring Provider Internal Medicine; Visit Provider Internal Medicine
DX: J84.9 Interstitial pulmonary disease, unspecified (principal)

== ENCOUNTER 2022-02-15 13:00 | Outpatient (RCR) | payer MEDICARE, SELFPAY | END 2022-02-16 23:59 | LOC: PR 13:00 | PROVIDERS: PCP Internal Medicine; Referring Provider Internal Medicine; Visit Provider Internal Medicine | DX: J84.9 Interstitial pulmonary disease, unspecified (principal) | CPT/HCPCS: 97150; G0239 ==

== ENCOUNTER 2022-03-15 13:00 | Outpatient (RCR) | payer MEDICARE, SELFPAY ==
--- NOTE | 2022-03-06 14:35 | PR.ITP_ITS ---
Exercise - 30-Day Assessment - Visit Date of Eval: 03/06/22 Session Number:: 9 - Patient tested positive for COVID-19 on 02/27/22 and will adhere to the 14 day quarantine returning on 03/11/2022. - Physician Prescribed Exercise Modalities: Treadmill, Biodyne - Schwinn Airdyne Bike, NuStep Intensity: 60-80% of age predicted maximum heart rate reserve Aerobic Exercise [30-60 min 3-7x/week]:: Progressing Jesús-13 Current METSs:: 3.0 Target HR:: 117 - 88-117 THRR Current RPD:: 2 Maximum Exercise HR:: 101 Resting Blood Pressure: 138/80 Maximum Exercise Blood Pressure: 140/80 EKG Type: NSR to sinus tach without ectopy Current Minutes of Exercise: 52 - Home Exercise Home Exercise:: Yes Mode: Walking Nutrition/Wt Mgmt - 30-Day - Visit Date of Eval: 03/06/22 Session Number:: 9 - Weight Management Height: 5 ft 9 in Weight:: 245 lb 8 oz BMI: 36.2 Weight Goals Progress:: Progressing Psychosocial - 30-Day - Visit Date of Eval: 03/06/22 Session Number:: 9 - Problems/Goals History of Emotional Disorders: None Psychosocial Goals: 7. Improved Q.O.L. - Psychosocial Test Tool Used:: PHQ-9 Questionnaire - Referral to Behavioral Health PS - Interventions: Yes Attend Stress Management Classes, No Referral to Behavioral Health if PHQ-9 score >9:, No Referral to [facility], No Referral to Physician if PHQ-9 if score is 5-9: - Plan Interventions/Plan:: Assess stressors,coping strategies & signs of derpression on admission, Instruct/assist pt to develop coping & personal stress Mgt strategies, Instruct patient to recognize signs & symptoms of depression, Instruct patient to recog Oxygen & Oxygen Titration 30D - Visit Date of Eval: 03/06/22 Session Number:: 9 - Reassessment Reassessment- 30 Days: Demonstrate knowledge of O2 Rx at rest & w/exercise Breath Sounds:: Clear SpO2:: 97 - room air upon arrival Core Components - Initial Core Components - 30 DAYS - Visit Date of Eval: 03/06/22 Session Number:: 9 - Hypertension Hypertension Diagnosis:: Hypertension ICD-10 I10 Resting Blood Pressure:: 138/80 [place] [employer] Hypertension Guidelines: [place] [employer] Hypertension Guidelines. Normal BP Less than 120/80. Elevated BP 120/80. Hypertension Stage 1: BP 130-139/80-89. Hypertesnion Stage 2: BP 140 or hi gher/90 or higher. Hypertension Crisis: BP higher than 180/120 Peak Exercise Blood Pressure:: 140/80 Change in medication: No Outcomes/Goals: Able to verbalize/achieve optimal blood pressure <130/80, Incorporates diet changes & exercise for blood pressure control by DC Interventions/plan: Instruct on optimal blood pressure, hypertension & medications, Instruct on effects of sodium, alcohol, stress, exercise &hypertension 30 day Reassessments:: Progressing - Exacerbation Mgmt & Airway Clearance Reassessment: Demonstrates knowledge of O2 Rx with exercise Bronchial Hygiene Plan: Yes Pt demo correct for improved hydration, Yes Pt demo correct for hand hygiene - Diabetes Diabetes:: No Core Components - 60 DAYS Core Components - 90 DAYS Core Components - Final Patient Health Questionnaire 30-Day Re-eval Assessment 1. Little interest or pleasure in doing things: Not at all 2. Feeling down, depressed, or hopeless: Not at all 3. Trouble falling or staying asleep, or sleeping too much: More than half the days 4. Feeling tired or having little energy: More than half the days 5. Poor appetite or overeating: Several days 6. Feeling bad about yourself -- or that you are a failure or have let yourself or your family down: Not at all 7. Trouble concentrating on things, such as reading the newspaper or watching television: Not at all 8. Moving or speaking so slowly that other people could have noticed. Or the opposite - being so fidgety or restless that you have been moving around a lot more than usual: Nearly every day 9. Thoughts that you would be better off , or of hurting yourself in some way: Not at all How difficult have these problems made it for you to do your work, take care of things at home, or get along with other people?: Somewhat difficult Total Score: 8 Knowledge Questionaire (BCKQ) - Information Information: [place] COPD Knowledge Questionnaire (BCKQ) This questionnaire is designed to find out what you know about your lung problem. It should be completed without help form anyone else. This usually takes between 10 and 20 minutes. Your answers will help us to find out what information you need to help you to understand and manage your lung condition. Paul the [place] which you think is the correct answer. Self-Efficacy 30-Day Re-eval Assessment We would like to know how confident you are in doing certain activities. Please select your confidence level for:: Select your confidence level for the following using the scale 1-10 where 1 is not at all confident and 10 is totally confident. Your score is the average of all 6 responses. Fatigue: How confident are you that you can keep the fatigue caused by your disease from interfering with the things you want to do? Select Number: 8 Physical Discomfort or Pain: How confident are you that you can keep the physical discomfort or pain of your disease from interfering with the things you want to do? Select Number: 8 Emotional Distress: How confident are you that you can keep the emotional distress caused by your disease from interfering with the things you want to do? Select Number: 8 Other Symptoms or Health Problems: How confident are you that you can keep other symptoms or health problems from interfering with the things you want to do? Select Number: 8 Different Tasks and Activities: How confident are you that you can do the different tasks and activities needed to manage your health condition so as to reduce your need to see a doctor? Select Number: 8 Medication: How confident are you that you can do things other than just taking medication to reduce how much your illness affects your everyday life? Select Number: 8 Total Score:: 8 Nutrition Survey
[2022-03-06 14:43] VITALS: BP 138/80; BP 140/80; O2SAT 97; BMI 36.2
== END 2022-03-19 23:59 ==
LOC: PR 13:00
PROVIDERS: PCP Internal Medicine; Referring Provider Internal Medicine; Visit Provider Internal Medicine
DX: J84.9 Interstitial pulmonary disease, unspecified (principal)
CPT/HCPCS: 97150; G0239

== ENCOUNTER 2022-04-17 13:00 | Outpatient (RCR) | payer MEDICARE, SELFPAY ==
[2022-03-06 14:43] VITALS: BMI 36.2
[2022-03-20 01:08] VITALS: BP 138/80; BP 140/80
--- NOTE | 2022-04-03 08:30 | PCM.PR.TP ---
Exercise - 60-Day Assessment - Visit Date of Eval: 04/03/22 Session Number:: 19 - missed 4 scheduled session due to COVID expose/isolation - Physician Prescribed Exercise Modalities: Treadmill, Biodyne, NuStep Intensity: 60-80% of age predicted maximum heart rate reserve Aerobic Exercise [30-60 min 3-7x/week]:: Progressing Jesús-15 Current METSs: 4.5 Target HR:: 117 - THHR 88-117 Current RPD:: 3 Maximum Exercise HR:: 126 Resting Blood Pressure: 132/68 Maximum Exercise Blood Pressure: 186/84 Minimum SpO2 with exercise: 91 - ROOM AIR EKG Type: Sinus tachycardia without ectopy Current Minutes of Exercise: 32:40 - Home Exercise Home Exercise:: Yes Nutrition/Wt Mgmt - 60-Day - Visit Date of Eval: 04/03/22 Session Number:: 19 - Weight Management Height: 5 ft 9 in Weight:: 237 lb BMI: 34.9 Weight Goals Progress:: Progressing - down from previous weight 245.5 Psychosocial - 60-Day - Visit Date of Eval: 04/03/22 Session Number:: 19 - Psychosocial Test Tool Used:: PHQ-9 Questionnaire - Referral to Behavioral Health PS - Interventions: Yes Attend Stress Management Classes, No Referral to Behavioral Health if PHQ-9 score >9:, No Referral to [facility], No Referral to Physician if PHQ-9 if score is 5-9: - Plan Interventions/Plan:: Assess stressors,coping strategies & signs of derpression on admission, Instruct/assist pt to develop coping & personal stress Mgt strategies, Instruct patient to recognize signs & symptoms of depression, Instruct patient to recog Oxygen & Oxygen Titration 60D - Visit Date of Eval: 04/03/22 Session Number:: 19 - Reassessment Breath Sounds:: Clear, Diminished SpO2:: 93 - room air at rest Core Components - Initial Core Components - 30 DAYS Core Components - 60 DAYS - Visit Date of Eval: 04/03/22 Session Number:: 19 - Hypertension Resting Blood Pressure:: 132/68 [place] [employer] Hypertension Guidelines: [place] [employer] Hypertension Guidelines. Normal BP Less than 120/80. Elevated BP 120/80. Hypertension Stage 1: BP 130-139/80-89. Hypertesnion Stage 2: BP 140 or higher/90 or higher. Hypertension Crisis: BP higher than 180/120 Peak Exercise Blood Pressure:: 186/84 Change in medication: No Outcomes/Goals: Able to verbalize/achieve optimal blood pressure <130/80, Incorporates diet changes & exercise for blood pressure control by DC Interventions/plan: Instruct on optimal blood pressure, hypertension & medications, Instruct on effects of sodium, alcohol, stress, exercise &hypertension 60 day Reassessments:: Not Met - Exacerbation Mgmt & Airway Clearance Bronchial Hygiene Plan: Yes Pt demo correct for device - SMI, PFlex and Spacer, Yes Pt demo correct for improved hydration, Yes Pt demo correct for hand hygiene, Yes Pt demo correct for verbalize when to call MD - Medication Medication list reviewed:: Yes Taking medications 100% of the time:: Met Medication reassessment: Yes Pt demonstrates correct technique timing for MDI, Yes Pt demonstrates correct technique timing for DPI, Yes Pt demonstrates correct technique timing for NEB, Yes Pt demonstrates correct technique timing for spacer - Diabetes Diabetes:: No - Heart Failure Documenting weight kelly: No Core Components - 90 DAYS Core Components - Final Patient Health Questionnaire 60-Day Re-eval Assessment 1. Little interest or pleasure in doing things: Not at all 2. Feeling down, depressed, or hopeless: Not at all 3. Trouble falling or staying asleep, or sleeping too much: Several days 4. Feeling tired or having little energy: Several days 5. Poor appetite or overeating: Not at all 6. Feeling bad about yourself -- or that you are a failure or have let yourself or your family down: Not at all 7. Trouble concentrating on things, such as reading the newspaper or watching television: Not at all 8. Moving or speaking so slowly that other people could have noticed. Or the opposite - being so fidgety or restless that you have been moving around a lot more than usual: More than half the days 9. Thoughts that you would be better off , or of hurting yourself in some way: Not at all Total Score: 4 Knowledge Questionaire (BCKQ) - Information Information: [facility] COPD Knowledge Questionnaire (BCKQ) This questionnaire is designed to find out what you know about your lung problem. It should be completed without help form anyone else. This usually takes between 10 and 20 minutes. Your answers will help us to find out what information you need to help you to understand and manage your lung condition. Paul the [place] which you think is the correct answer. Self-Efficacy 60-Day Re-eval Assessment We would like to know how confident you are in doing certain activities. Please select your confidence level for:: Select your confidence level for the following using the scale 1-10 where 1 is not at all confident and 10 is totally confident. Your score is the average of all 6 responses. Fatigue: How confident are you that you can keep the fatigue caused by your disease from interfering with the things you want to do? Select Number: 8 Physical Discomfort or Pain: How confident are you that you can keep the physical discomfort or pain of your disease from interfering with the things you want to do? Select Number: 8 Emotional Distress: How confident are you that you can keep the emotional distress caused by your disease from interfering with the things you want to do? Select Number: 9 Other Symptoms or Health Problems: How confident are you that you can keep other symptoms or health problems from interfering with the things you want to do? Select Number: 8 Different Tasks and Activities: How confident are you that you can do the different tasks and activities needed to manage your health condition so as to reduce your need to see a doctor? Select Number: 9 Medication: How confident are you that you can do things other than just taking medication to reduce how much your illness affects your everyday life? Select Number: 9 Total Score:: 8 Nutrition Survey
[2022-04-03 08:38] VITALS: BP 132/68; BP 186/84; O2SAT 93; BMI 34.9
== END 2022-04-18 23:59 ==
LOC: PR 13:00
PROVIDERS: PCP Internal Medicine; Referring Provider Internal Medicine; Visit Provider Internal Medicine
DX: J84.9 Interstitial pulmonary disease, unspecified (principal)
CPT/HCPCS: 97150; G0239

== ENCOUNTER 2022-05-17 13:00 | Outpatient (RCR) | payer MEDICARE, SELFPAY ==
[2022-04-03 08:38] VITALS: BMI 34.9
[2022-04-19 00:39] VITALS: BP 132/68; BP 186/84
--- NOTE | 2022-05-03 06:57 | PCM.PR.TP ---
Exercise - 90-Day Assessment - Visit Date of Eval: 05/03/22 Session Number:: 29 - Physician Prescribed Exercise Modalities: Treadmill, Airdyne, NuStep Frequency (days/week): 3 Duration (minutes): 38:36 Intensity: 60-80% of age predicted maximum heart rate reserve Aerobic Exercise [30-60 min 3-7x/week]:: Met Jesús-13 Current METSs:: 4.5 limited to Max HR Target HR:: 117 - THRR 88-117 Current RPD:: 2-3 Maximum Exercise HR:: 117 Resting Blood Pressure: 110/68 Maximum Exercise Blood Pressure: 184/108 Minimum SpO2 with exercise: 89 - on Room Air and on Airdyne Schwinn EKG Type: NSR to sinus tach w/occasional PVCs, rare multi-focal PVCs Current Minutes of Exercise: 38:36 - Home Exercise Home Exercise?: Yes Mode: Other - Rekha classes Frequency:: daily Time (minutes):: 60 - Greater than 1-hour daily. Nutrition/Wt Mgmt - 90-Day - Visit Date of Eval: 05/03/22 Session Number:: 29 - Weight Management Height: 5 ft 9 in Weight:: 233 lb 8 oz - down from 237.6 BMI: 34.4 Weight Goals Progress:: Progressing Psychosocial - 90-Day - Visit Date of Eval: 05/03/22 Session Number:: 29 - Problems/Goals Psychosocial Goals: 7. Improved Q.O.L. Depression:: Impaired QOL Self-reported stressors: Recent Illness - Psychosocial Test Tool Used:: PHQ-9 Questionnaire - Referral to Behavioral Health PS - Interventions: Yes Attend Stress Management Classes, No Referral to Behavioral Health if PHQ-9 score >9:, No Referral to [facility], No Referral to Physician if PHQ-9 if score is 5-9: - Plan Interventions/Plan:: Assess stressors,coping strategies & signs of derpression on admission, Instruct/assist pt to develop coping & personal stress Mgt strategies, Instruct patient to recognize signs & symptoms of depression, Instruct patient to recog - MET goals Oxygen & Oxygen Titration 90D - Visit Date of Eval: 05/03/22 Session Number:: 29 - Reassessment Oxygen & Oxygen Titration 90 days: None Breath Sounds:: Clear SpO2:: 95 - room air at rest Core Components - Initial Core Components - 30 DAYS Core Components - 60 DAYS Core Components - 90 DAYS - Visit Date of Eval: 05/03/22 Session Number:: 29 - Hypertension Hypertension Diagnosis:: Hypertension ICD-10 I10 Resting Blood Pressure:: 110/68 [place] [employer] Hypertension Guidelines: [place] [employer] Hypertension Guidelines. Normal BP Less than 120/80. Elevated BP 120/80. Hypertension Stage 1: BP 130-139/80-89. Hypertesnion Stage 2: BP 140 or higher/90 or higher. Hypertension Crisis: BP higher than 180/120 Peak Exercise Blood Pressure:: 184/108 Outcomes/Goals: Able to verbalize/achieve optimal blood pressure <130/80, Incorporates diet changes & exercise for blood pressure control by DC Interventions/plan: Instruct on optimal blood pressure, hypertension & medications, Instruct on effects of sodium, alcohol, stress, exercise &hypertension 90 day Reassessments:: Met - Tobacco - 90-Day Tobacco Program Goals: Complete smoking cessation. Attend education classes. Improve Knowledge Test score Tobacco Use: Non-smoker - Exacerbation Mgmt & Airway Clearance Bronchial Hygiene Plan: Yes Pt demo correct for device - PFlex, Acapella, SMI, Spacer, Yes Pt demo correct for improved hydration, Yes Pt demo correct for hand hygiene, Yes Pt demo correct for verbalize when to call MD - Medication Medication list reviewed:: Yes Taking medications 100% of the time:: Met - Diabetes Diabetes:: No - Heart Failure Documenting weight daily: No Core Components - Final Patient Health Questionnaire 90-Day Re-eval Assessment 1. Little interest or pleasure in doing things: Not at all 2. Feeling down, depressed, or hopeless: Not at all 3. Trouble falling or staying asleep, or sleeping too much: Not at all 4. Feeling tired or having little energy: Not at all 5. Poor appetite or overeating: Not at all 6. Feeling bad about yourself -- or that you are a failure or have let yourself or your family down: Not at all 7. Trouble concentrating on things, such as reading the newspaper or watching television: Not at all 8. Moving or speaking so slowly that other people could have noticed. Or the opposite - being so fidgety or restless that you have been moving around a lot more than usual: Not at all Total Score: 0 Knowledge Questionaire (BCKQ) - Information Information: [place] COPD Knowledge Questionnaire (BCKQ) This questionnaire is designed to find out what you know about your lung problem. It should be completed without help form anyone else. This usually takes between 10 and 20 minutes. Your answers will help us to find out what information you need to help you to understand and manage your lung condition. Paul the [place] which you think is the correct answer. Self-Efficacy 90-Day Re-eval Assessment We would like to know how confident you are in doing certain activities. Please select your confidence level for:: Select your confidence level for the following using the scale 1-10 where 1 is not at all confident and 10 is totally confident. Your score is the average of all 6 responses. Fatigue: How confident are you that you can keep the fatigue caused by your disease from interfering with the things you want to do? Select Number: 9 Physical Discomfort or Pain: How confident are you that you can keep the physical discomfort or pain of your disease from interfering with the things you want to do? Select Number: 10 Emotional Distress: How confident are you that you can keep the emotional distress caused by your disease from interfering with the things you want to do? Select Number: 10 Other Symptoms or Health Problems: How confident are you that you can keep other symptoms or health problems from interfering with the things you want to do? Select Number: 10 Different Tasks and Activities: How confident are you that you can do the different tasks and activities needed to manage your health condition so as to reduce your need to see a doctor? Select Number: 10 Medication: How confident are you that you can do things other than just taking medication to reduce how much your illness affects your everyday life? Select Number: 10 Total Score:: 9 Nutrition Survey
[2022-05-03 07:03] VITALS: BP 110/68; BP 184/108; O2SAT 95; BMI 34.4
== END 2022-05-19 23:59 ==
LOC: PR 13:00
PROVIDERS: PCP Internal Medicine; Referring Provider Internal Medicine; Visit Provider Internal Medicine
DX: J84.9 Interstitial pulmonary disease, unspecified (principal)
CPT/HCPCS: 97150; G0239

== ENCOUNTER 2022-09-11 00:35 | Emergency (ER) | payer MEDICARE, SELFPAY ==
[2022-05-03 07:03] VITALS: BMI 34.4
[2022-09-11 00:36] VITALS: BP 145/79; PULSE 70; RESP 18; TEMP 36.6; O2SAT 99; BMI 34.2
--- NOTE | 2022-09-11 01:12 | EDS_ITS ---
HPI History of Present Illness HPI Narrative: Patient presents with bilateral lower extremity cramping that began tonight. Patient states he was outside standing for a couple hours. Patient states that he started having cramping in his right lower leg and then started having cramping in his left thigh. Patient states it has been waxing and waning since it began. Patient describes his pain as cramping. Patient states nothing makes it better nothing makes it worse. Patient denies any paresthesias or weakness. Patient denies any trauma or injury. Patient denies any fevers or chills. Chief Complaint: Lower Extremity Injury Informant: patient Onset/Context/Timing Onset: Today Context: Sudden Onset Timing: Waxes and wanes Quality of Pain: - (Cramping) Location: Bilateral lower extremities Worsened by: Nothing Relieved by: Nothing Associated Symptoms Associated Symptoms: Negative for Parasthesia, Weakness or Loss of Funtion PFSH [facility] Medical History MARIA GUADALUPE (acute kidney injury) Bladder cancer Cancer Chronic pain GERD (gastroesophageal reflux disease) Hypertension Interstitial lung disease Irregular heart beat Kidney stones Neutropenia due to infection Non-smoker On home oxygen therapy Pulmonary fibrosis Right inguinal hernia Sinus tachycardia Thrombocytopenia Vasovagal syncope Home Medications amitriptyline 50 mg tablet 25 mg PO BID Check with primary doctor 12/13/21 [History Last Taken Unknown] amlodipine 2.5 mg tablet 2.5 mg PO QHS HTN 12/13/21 [History Last Taken Unknown] calcitriol 0.25 mcg capsule 0.25 mcg PO QMWF Check with primary doctor 12/13/21 [History Last Taken Unknown] losartan 100 mg tablet 100 mg PO QHS HTN 12/13/21 [History Last Taken Unknown] rosuvastatin 10 mg tablet 10 mg PO QHS HYPERLIPIDEMIA 12/13/21 [History Last Taken Unknown] sennosides 8.6 mg-docusate sodium 50 mg tablet (Stool Softener-Stimulant Laxative) 2 tab PO DAILY #0 tabs 12/14/21 [Rx Last Taken Unknown] Allergy/AdvReac Type Severity Reaction Status Date / Time No Known Allergies Allergy Verified 12/13/21 21:00 Family History (Updated 12/13/21 @ 23:[address] Bethel Gtz MD) Other Cancer Surgical History History of nephrectomy, left S/P ileal conduit Social History household members: none Smoking Status: Never smoker substance use type: does not use ROS ROS ED Constitutional Constitutional ED: Denies chills or fever(s) Eyes Eyes: Denies blurry vision or change in vision ENT ENT ED: Denies rhinorrhea or sore throat Cardiovascular Cardiovascular: Denies chest pain or palpitations Respiratory/Chest Respiratory/Chest: Denies cough or dyspnea Gastrointestinal Gastrointestinal: Denies nausea or vomiting Genitourinary Genitourinary ED: Denies dysuria or hematuria Musculoskeletal Musculoskeletal: Reports back pain; Denies neck pain Integumentary Denies abscess or rash Neurologic Neurologic: Denies headache(s) or weakness Allergic/Immunologic Allergic/Immunologic ED: Denies mouth swelling or urticaria EXAM Physical Exam Const Vital Signs: 09/11/22 00:36 Temperature 97.9 F Temperature Source Temporal Pulse Rate 70 Respiratory Rate 18 Blood Pressure 145/79 H Blood Pressure Mean 101 Pulse Ox 99 Oxygen Delivery Method Room Air Positive well nourished and well developed General Appearance ED: well developed HEENT Reports moist mucous membranes Neck supple and no JVD Resp normal respiratory effort and clear to auscultation bilaterally Cardio regular rate, regular rhythm and no murmurs GI normal to inspection, nondistended, normoactive bowel sounds and non-tender Palpation: soft Extremity normal to inspection General Extremety ED: Negative for edema or tenderness General Extremity: Negative for edema Neuro oriented x3, CN's II-XII intact bilaterally and no sensory deficits noted Sensorium / Orientation: alert Motor Exam: strength 5/5 throughout Psych mental status grossly normal Skin no rashes or lesions noted MDM MDM MDM Narrative Medical decision making narrative: CBC was within normal limits. Basic metabolic profile shows a BUN of 34 and creatinine of 2.02. These are consistent with prior results. Patient is feeling better on reevaluation. Patient was instructed to do stretching exercises. Patient was instructed to follow-up with his primary care physician in 5 to 7 days. Patient understood and was agreeable with the plan. All questions were answered. Lab Data Labs: Laboratory Results - last 24 hr 09/11/22 09/11/22 01:50 01:50 WBC 6.5 RBC 4.66 Hgb 13.8 Hct 42.3 MCV 90.8 MCH 29.6 MCHC 32.6 RDW Std Deviation 44.3 H RDW Coeff of Rosa 13.2 Plt Count 189 MPV 9.6 Immature Gran % (Auto) 0.200 Neut % (Auto) 71.4 H Lymph % (Auto) 15.9 L [place] % (Auto) 11.1 H Eos % (Auto) 1.1 Baso % (Auto) 0.3 Absolute Neuts (auto) 4.6 Absolute Lymphs (auto) 1.03 Nucleated RBC % 0 Sodium 140 Potassium 4.3 Chloride 105 Carbon Dioxide 29.0 Anion Gap 6 BUN 34 H Creatinine 2.02 H Estim Creat Clear Calc 32.08 Est GFR (MDRD) Af Amer 42 L Est GFR (MDRD) Non-Af 34 L BUN/Creatinine Ratio 16.8 Glucose 100 Calcium 8.9 Discharge Plan Triage Chief Complaint: Lower Extremity Injury ED Provider: Vu Dickson Dx/Rx/DC Orders Clinical Impression: Bilateral leg cramps Instructions: ED Muscle Spasm Prescriptions: No Action amlodipine 2.5 mg tablet 2.5 mg PO QHS Label Comments: TAKE 1 TABLET BY MOUTH ONCE DAILY AT BEDTIME amitriptyline 50 mg tablet 25 mg PO BID Label Comments: TAKE 1 TABLET BY MOUTH ONCE DAILY AT BEDTIME losartan 100 mg tablet 100 mg PO QHS Hold Instructions: Hold for 2 days and then resume losartan 50 mg daily for 2 days then increase 100 mg daily. Label Comments: TAKE 1 TABLET BY MOUTH ONCE DAILY AT BEDTIME calcitriol 0.25 mcg capsule 0.25 mcg PO QMWF Label Comments: TAKE 1 CAPSULE BY MOUTH ON FRIDAY, FRIDAY AND FRIDAY rosuvastatin 10 mg tablet 10 mg PO QHS Label Comments: TAKE 1 TABLET BY MOUTH ONCE DAILY AT BEDTIME sennosides-docusate sodium [Stool Softener-Stimulant Laxat] 8.6-50 mg Tablet 2 tab PO DAILY Qty: 0 0RF Primary Care Provider: Sonido Ramsey Referrals: Sonido Ramsey MD [Primary Care Provider] - 5-7 Days Disposition Disposition: Home, Self Care
[2022-09-11 02:00] LABS: Absolute Lymphocyte Count 1.03 X10^3/uL (0.83-4.51); Absolute Neutrophil Count 4.6 X10^3/uL (2.0-7.7); Basophil# 0.02 X10^3/uL; Basophil% 0.3 % (0-1); Eosinophil# 0.07 X10^3/uL; Eosinophils% 1.1 % (0-5); Hematocrit 42.3 % (40-54); Hemoglobin 13.8 g/dL (13.0-16.5); Lymphocyte # 1.03 X10^3/ul (0.83-4.51); Lymphocyte % 15.9 % (19-41); Mean Corp Hgb Conc 32.6 g/dL (32-36); Mean Corpuscular Hgb 29.6 pg (27.0-32.0); Mean Corpuscular Volume 90.8 fL (80-94); Mean Platelet Vol. 9.6 fl (6.2-12.0); Monocyte# 0.72 X10^3/uL; Monocyte% 11.1 % (0-10); NRBC Flagged by Analyzer 0 % (0-5); Neutrophil # 4.64 X10^3/uL (2.7-7.7); Neutrophil % 71.4 % (47-70); Platelet Count 189 K/mm3 (150-450); RBC Distribution Width CV 13.2 % (11.6-14.6); RBC Distribution Width SD 44.3 fl (35.1-43.9); Red Blood Count 4.66 M/mm3 (4.6-6.2); White Blood Count 6.5 K/mm3 (4.4-11.0)
[2022-09-11 02:18] LABS: Anion Gap 6 (5-15); BUN 34 mg/dL (7-18); BUN/Creat Ratio 16.8 RATIO (10-20); Calcium,Total 8.9 mg/dL (8.5-10.1); Chloride 105 mmol/L (98-107); Creatinine, Serum 2.02 mg/dL (0.70-1.30); EST Glomerular Filtration Rate 34 mL/min (>60); Est Glom Filt Rate - Afr Amer 42 mL/min (>60); Estimated Creatinine Clearance 32.08 ml/min; Glucose 100 mg/dL (74-106); Potassium 4.3 mmol/L (3.5-5.1); Sodium Level 140 mmol/L (136-145)
== END 2022-09-11 02:49 | disposition home or self-care (01) ==
PROVIDERS: Emergency Provider Emergency Medicine; PCP Internal Medicine; Visit Provider Emergency Medicine
DX: R25.2 Cramp and spasm (principal); I10 Essential (primary) hypertension
CPT/HCPCS: 80048; 85025; 99282

== ENCOUNTER → 2023-01-02 | Outpatient (CLI) | payer MEDICARE, SELFPAY ==
[2022-05-03 07:03] VITALS: BMI 34.4
--- NOTE | 2023-01-02 08:22 | WOUNDNOTE ---
Pt had called this nurse d/t having issues with leakage approx every other day. patient has a history of bladder cancer and has an ileal conduit. this nurse had previously seen patient for maceration to the peristomal skin. patient had been cutting the opening in the appliance way too big at that time. the peristomal skin is now greatly improved. patient states the leakage occurs in the umbilical crease. had patient sit and bend forward to assess the skin folds. when patient leans forward, the stoma retracts slightly and there is a crease noted at the 3 o'clock and the 9 o'clock positions. patient uses a 2 piece Samm convex appliance. patient had been using the Adapt rings, but recently stopped using them. cleansed skin with warm water. pat dry. applied stoma powder and sealed in with skin prep. once dry, placed a small piece of the Adapt ring in the crease and then placed the ostomy appliance. will call patient to follow up on leakage issues in a few days. pt and very appreciative of care. pt aware to call for further ostomy issues.
== END | disposition home or self-care (01) ==
LOC: ET 07:52
PROVIDERS: PCP Internal Medicine; Referring Provider Nurse Practitioner; Visit Provider Nurse Practitioner
DX: Z71.89 Other specified counseling (principal)
CPT/HCPCS: 99211; G0463

== ENCOUNTER 2025-02-10 20:59 | Emergency (ER) | payer MEDICARE, SELFPAY ==
[2022-05-03 07:03] VITALS: BMI 34.4
[2025-02-10 21:00] VITALS: BP 156/80; PULSE 65; RESP 16; TEMP 36.5; O2SAT 98; BMI 35.6
--- NOTE | 2025-02-10 21:13 | ED.VIS.GI ---
HPI HPI - GI History of Present Illness Chief Complaint: Abd Pain Narrative Narrative: 74-year-old male presents with his because of abdominal pain that he has had sudden onset for the last few hours. He is unsure if maybe he has a kidney stone. He does have a past medical history of bladder carcinoma and they removed his left kidney in his bladder so he has an ileostomy. He denies any fevers or chills, no nausea or vomiting. No noted blood in his urine. No exacerbating or alleviating factors. He states the pain is in the middle of his abdomen. He has had kidney stones in the past, but states that the pain is not 1 side. PFSH [facility] Medical History Cancer Chronic pain GERD (gastroesophageal reflux disease) Non-smoker On home oxygen therapy Irregular heart beat Hypertension Vasovagal syncope Interstitial lung disease Right inguinal hernia Sinus tachycardia MARIA GUADALUPE (acute kidney injury) Pulmonary fibrosis Thrombocytopenia Neutropenia due to infection Kidney stones Bladder cancer Home Medications ?Medication ?Instructions ?Recorded ?Last Taken ?Type amitriptyline 50 mg tablet 25 mg PO BID Check with primary 12/13/21 Unknown History doctor amlodipine 2.5 mg tablet 7.5 mg PO QHS HTN 12/13/21 Unknown History losartan 100 mg tablet 100 mg PO QHS HTN 12/13/21 Unknown History rosuvastatin 10 mg tablet 10 mg PO QHS HYPERLIPIDEMIA 12/13/21 Unknown History sennosides 8.6 mg-docusate sodium 2 tab PO DAILY #0 tabs 12/14/21 Unknown Rx 50 mg tablet (Stool Softener-Stimulant Laxative) Lactobacillus acidophilus 10 100 mmu cells PO DAILY 02/10/25 Unknown History billion cell capsule (Probiotic) cholecalciferol (vitamin D3) 25 25 mcg PO DAILY 02/10/25 Unknown History mcg (1,000 unit) capsule (Vitamin D3) magnesium 200 mg tablet 800 mg PO DAILY 02/10/25 Unknown History Allergy/AdvReac Type Severity Reaction Status Date / Time No Known Allergies Allergy Verified 02/10/25 21:04 Family History Other Cancer Surgical History History of nephrectomy, left S/P ileal conduit Social History household members: none Smoking Status: Never smoker substance use type: does not use ROS ROS ED ROS Narrative Review of systems positive for abdominal pain, mainly in the left lower quadrant. No fevers or chills, no nausea or vomiting. No problems with bowel movements, no diarrhea. No exacerbating or alleviating factors. Pain was sudden onset a few hours ago when he was sitting in his backyard. EXAM Physical Exam Narrative Exam Narrative: Afebrile. Vital signs noted. Nontoxic-appearing. Cardiovascular examination reveals a regular rate and rhythm. Lungs are clear to auscultation bilaterally. Abdomen is soft with mild tenderness to palpation in the left lower quadrant. No CVA tenderness to percussion bilaterally. He does have a ileostomy bag in the right lower quadrant. Positive bowel sounds. Const Vital Signs: 02/10/25 21:00 Temperature 97.7 F L Temperature Source Oral Pulse Rate 65 Respiratory Rate 16 Blood Pressure 156/80 H Blood Pressure Mean 105 Pulse Ox 98 Oxygen Delivery Method Room Air MDM MDM MDM Narrative Medical decision making narrative: Differential diagnosis includes but not limited to diverticulitis versus bowel obstruction versus ureterolithiasis. Is difficult to obtain a urine sample from his ileostomy bag. Will obtain basic laboratory work including CBC, CMP, and lipase. I discussed CT imaging with the patient and as he had history of ureteral, prostate, and bladder carcinoma, he only has 1 kidney after nephrectomy, so IV dye will be withheld as patient and his state that they do his studies without contrast because of this. Additionally, I offered him something for analgesia in the form of parenteral opiates but he declined. He will be bolused normal saline 1 L intravenously. I reviewed his laboratory work and he has normal white count of 10.7 with hemoglobin normal at 13.9, platelet count normal at 277. Sodium normal at 136 with potassium 4.0, BUN of 32 and creatinine 1.86. When compared to prior laboratories this is below his baseline of creatinine at 2.0 and above. Glucose normal at 99. Lipase normal at 45 so I do not think he has a pancreatitis. I reviewed the radiology report of the CT of the abdomen and pelvis without contrast and he does have hydronephrosis on the right from the ureter all the way down to the ileal conduit. There is no evidence of obstructing stone. No diverticulitis. Upon repeat examination, he is resting comfortably on the cot watching television. He states that he went to the bathroom, and now he is pain-free. He had gone before the CT scan. At this point in time, I think he has more nonspecific abdominal pain. I do not feel he requires hospitalization or surgical consult. I discussed with him the utility of urinalysis from his ileal conduit, but he agrees that it is usually a contaminated specimen. I do not feel he requires antibiotics. I feel he can be discharged to follow-up. Return instructions were reviewed. Patient and agreeable to the plan. Disposition is discharged home, in stable condition. History & Record Review Discussion w/independent historian: Patient Lab Data Attestation: I reviewed the patient's lab results. Labs: Laboratory Results - last 24 hr 02/10/25 20:46 WBC 10.7 RBC 4.66 Hgb 13.9 Hct 41.4 MCV 88.8 MCH 29.8 MCHC 33.6 RDW Std Deviation 43.7 RDW Coeff of Rosa 13.6 Plt Count 277 MPV 9.8 Immature Gran % (Auto) 0.600 Neut % (Auto) 72.2 H Lymph % (Auto) 15.3 L [place] % (Auto) 8.8 Eos % (Auto) 2.5 Baso % (Auto) 0.6 Absolute Neuts (auto) 7.7 Absolute Lymphs (auto) 1.63 Nucleated RBC % 0 Sodium 136 Potassium 4.0 Chloride 98 Carbon Dioxide 24.3 Anion Gap 13 BUN 32 H Creatinine 1.86 H Estim Creat Clear Calc 41.22 L Est GFR (MDRD) Non-Af 37 L BUN/Creatinine Ratio 17.4 Glucose 99 Calcium 9.2 Total Bilirubin 0.50 AST 49 H ALT 39 Alkaline Phosphatase 164 H Total Protein 7.5 Albumin 4.2 Globulin 3.3 Albumin/Globulin Ratio 1.3 Lipase 45 Radiography Diagnostic Testing: Clinical Impression(s) from Imaging Studies Abdomen/Pelvis CT 02/10/25 21:20 IMPRESSION: NO ACUTE FINDINGS AT THE ABDOMEN OR PELVIS ON NONCONTRAST CT. Reading Location: [facility] Discharge Plan Triage Chief Complaint: Abd Pain ED Provider: Az Mariscal Dx/Rx/DC Orders Clinical Impression: Abdominal pain, Hydronephrosis Instructions: Understanding Hydronephrosis, ED Pain, Acute, Uncertain Cause, ED Abdominal Pain Unkn Cause Male... Prescriptions: No Action amlodipine 2.5 mg tablet 7.5 mg PO QHS Patient Comments: TAKE 1 TABLET BY MOUTH ONCE DAILY AT BEDTIME amitriptyline 50 mg tablet 25 mg PO BID Patient Comments: TAKE 1 TABLET BY MOUTH ONCE DAILY AT BEDTIME losartan 100 mg tablet 100 mg PO QHS Patient Comments: TAKE 1 TABLET BY MOUTH ONCE DAILY AT BEDTIME rosuvastatin 10 mg tablet 10 mg PO QHS Patient Comments: TAKE 1 TABLET BY MOUTH ONCE DAILY AT BEDTIME sennosides-docusate sodium [Stool Softener-Stimulant Laxat] 8.6-50 mg Tablet 2 tab PO DAILY Qty: 0 0RF Probiotic 10 billion cell capsule 100 mmu cells PO DAILY magnesium 200 mg tablet 800 mg PO DAILY cholecalciferol (vitamin D3) [Vitamin D3] 25 mcg (1,000 unit) capsule 25 mcg PO DAILY Primary Care Provider: Sonido Ramsey Referrals: Sonido Ramsey MD [Primary Care Provider] - 3-5 Days if not improving Activity Restrictions/Additional Instructions: Return with fever, increased pain, new or worsening symptoms. Print Language: Eritrean Disposition Disposition: Home, Self Care
--- NOTE | 2025-02-10 21:20 | CT_ITS ---
PROCEDURE: ABDOMEN/PELVIS WITHOUT CONT 02/10/2025 REASON FOR EXAM: PAIN TECHNIQUE: Abdomen and pelvis CT without intravenous contrast. Noncontrast technique limits evaluation of the abdominal and pelvic viscera. Coronal and Sagittal reconstruction series were provided. One or more dose reduction techniques were used (e.g., Automated exposure control, adjustment of the mA and/or kV according to patient size, use of iterative reconstruction technique). PATIENT PREPARATION: Per protocol ORAL CONTRAST TYPE: None. AMOUNT: mL FINDINGS: Lung bases: Idiopathic pulmonary fibrosis. Liver: Multiple small hepatic cysts. Gallbladder: Unremarkable Spleen: Normal size. Pancreas: Normal size. No surrounding inflammation. Adrenals: Unremarkable Kidneys: Status post left nephrectomy. Moderate hydronephrosis and ureteral dilatation on the right to the ileal conduit without obstructing stone. Bladder: Status post cystectomy with a right upper quadrant ileal conduit. Reproductive Organs: Unremarkable. Bowel: Multiple diverticula of the sigmoid colon consistent diverticulosis. No wall thickening or stranding of surrounding fat to suggest diverticulitis. Appendix: Unremarkable. Lymph nodes: Unremarkable. Vasculature: The abdominal aorta and IVC contours are normal. Noncontrast technique limits evaluation. Peritoneum / Retroperitoneum: Unremarkable. Bones: Bilateral pars defects of the L5 vertebra consistent with L5 spondylolysis. 2 mm of anterolisthesis of L5 on S1 consistent with grade 1 spondylolisthesis. History scoliosis lumbar spine. Status post bilateral hip arthroplasty which produces streak artifact and obscures the pelvis. CT/Abdomen/Pelvis without Cont IMPRESSION: NO ACUTE FINDINGS AT THE ABDOMEN OR PELVIS ON NONCONTRAST CT. Reading Location: [id number]
[2025-02-10] MEDS: 0.9% Normal Saline (1000mL) 1,000 ML 999 ML IV (21:21)
[2025-02-10 21:34] LABS: Absolute Lymphocyte Count 1.63 X10^3/uL (0.83-4.51); Absolute Neutrophil Count 7.7 X10^3/uL (2.0-7.7); Basophil# 0.06 X10^3/uL; Basophil% 0.6 % (0-1); Eosinophil# 0.27 X10^3/uL; Eosinophils% 2.5 % (0-5); Hematocrit 41.4 % (40-54); Hemoglobin 13.9 g/dL (13.0-16.5); Lymphocyte # 1.63 X10^3/ul (0.83-4.51); Lymphocyte % 15.3 % (19-41); Mean Corp Hgb Conc 33.6 g/dL (32-36); Mean Corpuscular Hgb 29.8 pg (27.0-32.0); Mean Corpuscular Volume 88.8 fL (80-94); Mean Platelet Vol. 9.8 fl (6.2-12.0); Monocyte# 0.94 X10^3/uL; Monocyte% 8.8 % (0-10); NRBC Flagged by Analyzer 0 % (0-5); Neutrophil # 7.72 X10^3/uL (2.7-7.7); Neutrophil % 72.2 % (47-70); Platelet Count 277 K/mm3 (150-450); RBC Distribution Width CV 13.6 % (11.6-14.6); RBC Distribution Width SD 43.7 fl (35.1-43.9); Red Blood Count 4.66 M/mm3 (4.6-6.2); White Blood Count 10.7 K/mm3 (4.4-11.0)
[2025-02-10 21:45] LABS: ALB/GLOB Ratio 1.3 RATIO (0.9-2.4); AST(SGOT) 49 U/L (<=37); Alanine Aminotransfer ALT/SGPT 39 U/L (<=46); Albumin, Serum 4.2 g/dL (3.4-4.8); Alkaline Phosphatase 164 U/L (40-129); Anion Gap 13 (5-15); BUN 32 mg/dL (4-19); BUN/Creat Ratio 17.4 RATIO (10-20); Calcium,Total 9.2 mg/dL (7.6-11.0); Carbon Dioxide 24.3 mmol/L (21.0-32.0); Chloride 98 mmol/L (98-108); Creatinine, Serum 1.86 mg/dL (0.70-1.20); EST Glomerular Filtration Rate 37 (>60); Estimated Creatinine Clearance 41.22 ml/min (50-250); Globulin 3.3 g/dL (2.2-4.2); Glucose 99 mg/dL (70-99); Lipase 45 U/L (13-75); Protein, Total 7.5 g/dL (5.9-8.4); Sodium Level 136 mmol/L (133-145)
[2025-02-10 22:27] VITALS: BP 149/85; PULSE 85; RESP 18; TEMP 36.8; O2SAT 98
== END 2025-02-10 22:27 | disposition home or self-care (01) ==
PROVIDERS: Emergency Provider Emergency Medicine; PCP Internal Medicine; Referring Provider Emergency Medicine; Visit Provider Emergency Medicine
DX: R10.9 Unspecified abdominal pain (principal); Z93.2 Ileostomy status; N13.30 Unspecified hydronephrosis; I10 Essential (primary) hypertension; Z90.5 Acquired absence of kidney; K21.9 Gastro-esophageal reflux disease without esophagitis
CPT/HCPCS: 74176; 80053; 83690; 85025; 96360; 99284